=== PATIENT | female | born 1940 | race Caucasian/White ===

== ENCOUNTER 2018-10-14 14:00 | Inpatient (IN) | payer MEDICARE, OTHER ==
[~2018-10-14] VITALS: Ht 160 cm; Wt 82.8 kg
[2018-10-14 15:23] LABS: BASO # 0.1 10^3/uL (0.0-0.2); BASO % 0.7 % (0.0-1.0); EOS % 0.3 % (0.0-3.0); HEMOGLOBIN 13.8 g/dl (12.0-15.5); LYMPH # 0.7 10^3/uL (1.5-4.5); LYMPH % 10.7 % (24.0-44.0); MEAN CORPUSCULAR HEMOGLOBIN 31.6 pg (27.0-33.0); MEAN CORPUSCULAR HGB CONC 32.1 g/dl (32.0-36.5); MEAN CORPUSCULAR VOLUME 98.4 fl (80.0-96.0); MONO # 0.5 10^3/uL (0.0-0.8); MONO % 7.1 % (0.0-5.0); NEUTROPHILS # 5.6 10^3/uL (1.8-7.7); NEUTROPHILS % 80.8 % (36.0-66.0); PLATELET COUNT, AUTOMATED 190 10^3/uL (150-450); RED BLOOD COUNT 4.37 10^6/uL (4.00-5.40); WHITE BLOOD COUNT 6.9 10^3/uL (4.0-10.0)
[2018-10-14] MEDS ORDERED: METOPROLOL 5 MG/5 ML VIAL IV STA (15:28)
[2018-10-14] MEDS ORDERED: METOPROLOL SUCC (TopROL XL) 50MG **XL** TAB PO ONE (15:30)
--- NOTE | 2018-10-14 15:38 | REP ---
Clinical: Slurred speech Comparison: None . Findings: Age-related atrophy with periventricular leukomalacia and microvascular ischemic changes are appreciated. Subtle small lacunar infarctions in the bilateral basal ganglia likely chronic. The ventricles and sulci are symmetric. Crews-white differentiation is maintained. There is no evidence for acute intracranial hemorrhage, mass/mass effect, pathology or infarction. No extra-axial fluid collection. Calvarium is intact. Paranasal sinuses and mastoid air cells are clear. Impression: Atrophy with periventricular leukomalacia and microvascular ischemic changes. Small basal ganglia lacunar infarcts. No acute intracranial hemorrhage or mass effect. Electronically Signed by Shekhar Orona MD 10/14/2018 03:30 P
--- NOTE | 2018-10-14 15:43 | REP ---
Clinical: Cerebrovascular accident. Comparison: None. Findings: Moderate bibasilar opacities consistent with consolidations and effusions. Differential diagnosis includes pulmonary edema. Visualized cardiac silhouette suggests cardiomegaly. No pneumothorax. Skeletal structures demonstrate osteopenia and degenerative changes. Impression: Moderate bilateral opacities consistent with effusions and consolidations. Findings likely represent pulmonary edema. Electronically Signed by Shekhar Orona MD 10/14/2018 03:35 P
[2018-10-14] MEDS ORDERED: FUROSEMIDE 40 MG/4 ML VIAL (J1940) IV ONE (15:45)
[2018-10-14 15:50] LABS: CALCIUM LEVEL 9.3 MG/DL (8.8-10.2); CREATININE FOR GFR 1.17 MG/DL (0.55-1.30); GLOMERULAR FILTRATION RATE 47.4 (>32); MB/CK RELATIVE INDEX 4.3 (< OR =4); POTASSIUM SERUM 4.9 MEQ/L (3.5-5.1); TROPONIN I 0.06 NG/ML (< 0.10)
[2018-10-14 15:57] LABS: INR 1.08; PROTHROMBIN TIME 14.1 SECONDS (12.1-14.4)
[2018-10-14 15:58] LABS: PARTIAL THROMBOPLASTIN TIME 26.3 SECONDS (25.4-37.6)
[2018-10-14] MEDS: METOPROLOL 5 MG/5 ML VIAL IV SCH ×3 (16:08→16:17)
[2018-10-14 16:40] LABS: INFLUENZA A AMPLIFICATION NEGATIVE (NEGATIVE); INFLUENZA B AMPLIFICATION NEGATIVE (NEGATIVE)
[2018-10-14 16:55] LABS: FREE T4 1.2 NG/DL (0.76-1.46)
[2018-10-14] MEDS ORDERED: diltiaZEM 125 MG in NS 100 ML IV SCH (19:00)
[2018-10-14 20:00] VITALS: BP 122/80
[2018-10-14] MEDS: ENOXAPARIN 40 MG/0.4 ML SYRINGE (J1650) SC SCH (20:06)
[2018-10-14 20:30] VITALS: BP 119/76
[2018-10-14 20:59] LABS: FREE T4 1.23 NG/DL (0.76-1.46); THYROID STIMULATING HORMONE 8.18 uIU/ML (0.358-3.740); TROPONIN I 0.06 NG/ML (< 0.10)
[2018-10-14 21:00] VITALS: BP 112/72
[2018-10-14 22:00] VITALS: BP 106/74
[2018-10-14 23:00] VITALS: BP 110/65
[2018-10-15] VITALS (8 sets, daily range): BP systolic 88–139; BP diastolic 0–77
[2018-10-15] MEDS ORDERED: diltiaZEM 125 MG in NS 100 ML IV SCH (01:00)
[2018-10-15 05:49] LABS: BASO # 0.1 10^3/uL (0.0-0.2); BASO % 0.9 % (0.0-1.0); EOS % 0.2 % (0.0-3.0); HEMATOCRIT 37.1 % (36.0-47.0); HEMOGLOBIN 12.1 g/dl (12.0-15.5); LYMPH # 0.7 10^3/uL (1.5-4.5); LYMPH % 11.8 % (24.0-44.0); MEAN CORPUSCULAR HEMOGLOBIN 31.3 pg (27.0-33.0); MEAN CORPUSCULAR HGB CONC 32.6 g/dl (32.0-36.5); MEAN CORPUSCULAR VOLUME 95.9 fl (80.0-96.0); MONO # 0.6 10^3/uL (0.0-0.8); MONO % 10.2 % (0.0-5.0); NEUTROPHILS # 4.5 10^3/uL (1.8-7.7); NEUTROPHILS % 76.4 % (36.0-66.0); PLATELET COUNT, AUTOMATED 147 10^3/uL (150-450); RED BLOOD COUNT 3.87 10^6/uL (4.00-5.40); WHITE BLOOD COUNT 5.9 10^3/uL (4.0-10.0)
[2018-10-15] MEDS: METOPROLOL TART 25 MG TABLET PO SCH ×3 (06:00→17:40)
[2018-10-15 06:13] LABS: CALCIUM LEVEL 8.6 MG/DL (8.8-10.2); CREATININE FOR GFR 1.28 MG/DL (0.55-1.30); GLOMERULAR FILTRATION RATE 42.7 (>32); POTASSIUM SERUM 4.4 MEQ/L (3.5-5.1)
--- NOTE | 2018-10-15 07:50 | REP ---
Clinical: Shortness of breath. Comparison: 10/14/2018. Findings: Cardiomegaly with moderate pleural effusions and bibasilar opacities similar to prior examination. No pneumothorax. Skeletal structures demonstrate stable osteopenia and degenerative changes. Impression: Pulmonary edema. Findings essentially unchanged compared to prior examination. Electronically Signed by Shekhar Orona MD 10/15/2018 07:42 A
[2018-10-15 07:58] LABS: TOTAL T3 71.4 NG/DL (60.0-181.0)
[2018-10-15] MEDS ORDERED: FUROSEMIDE 40 MG/4 ML VIAL (J1940) IV SCH ×2 (09:00)
--- NOTE | 2018-10-15 09:22 | ECGEPIP ---
Stationary ECG Study [facility] Test Date: 2018-10-15 Pat Name: VLADISLAV ROGER Department: Room: [place] [address] Gender: F [employer]p [employer]: ANI : 1940 Requested By: Tyree Mora Order Number: [id number] Reading MD: Cindy Goddard Measurements Intervals [place] Rate: 98 P: HI: 0 QRS: 17 QRSD: 88 T: 190 QT: 376 QTc: 481 Interpretive Statements ATRIAL FLUTTER/TACHYCARDIA MODERATE T-WAVE ABNORMALITY, CONSIDER INFERO LATERAL ISCHEMIA LOW VOLTAGE LIMB LEADS NO PRIOR Electronically Signed On 10-15-2018 9:21:56 EST by Cindy Goddard
[2018-10-15] MEDS: ENOXAPARIN 40 MG/0.4 ML SYRINGE (J1650) SC SCH ×2 (09:55→21:50)
[2018-10-15] MEDS: FUROSEMIDE 40 MG/4 ML VIAL (J1940) IV SCH ×2 (12:00→17:41)
--- NOTE | 2018-10-15 12:48 | CR ---
DATE OF CONSULTATION: 10/14/2018 INDICATION: Atrial fibrillation, congestive heart failure. HISTORY OF PRESENT ILLNESS: Ms. Haro is an 78-year-old female who is previously unknown to me. According to her own description, she has not seen a physician in approximately 40 years. She was in her usual state of health until approximately 2 weeks ago when she started having symptoms suggestive of respiratory infection with some itching in her throat and coughing but it gradually got worse and worse and was associated with a with paroxysmal nocturnal dyspnea and worsening exertional dyspnea. Eventually, she was brought to emergency room earlier today. She denies, during this time, any form of chest discomfort. She believes that it was 3 or 4 weeks ago she was doing perfectly fine. On the initial emergency room evaluation, she was found to be in atrial flutter with 2:1 conduction and ventricular rate 150 beats per minute. She was given IV metoprolol that led to some slowing in her heart rate. She then got 50 of oral Toprol XL and at the time of my evaluation her ventricular rate was 120 beats per minute. It is atrial flutter with variable AV conduction. She feels better, reasonably comfortable lying on the stretcher. She has no awareness of the palpitations. She denies any chest discomfort. PAST MEDICAL HISTORY: Essentially negative but she has not seen a physician in many years. OUTPATIENT MEDICATIONS: No outpatient medications. ALLERGIES: PENICILLIN. SOCIAL HISTORY: The patient is a . She lives alone. She has one son who lives in [place]. She never smoked. She does not drink alcohol. She was essentially a homemaker. FAMILY HISTORY: Positive for cardiac problems. Her father apparently of heart attack in his 60s. REVIEW OF SYSTEMS: She denies any jenny fever or chills. She denies any nausea, vomiting, diarrhea. She denies any history of bleeding problems, specifically has not noted any blood in her stools. There has never been any epistaxis. She did not notice peripheral edema. The rest of the review of systems is negative. PHYSICAL EXAMINATION: Mrs. Haro is an elderly female. She appears to be in no distress and in a good mood. She is joking with her family. She is somewhat hard of hearing so the communication is slightly limited. Last set of vital signs: Blood pressure 113/63, heart rate is 126. She is afebrile. Saturation 96% on 2 liters of oxygen by nasal cannula. She is alert and oriented and appropriate. Her jugular venous pressure is about 3-4 cm above clavicle. Lungs reveal fair air movement. I do appreciate occasional fine crackles. There are diminished breath sounds over both bases. Heart exam reveals irregular tachycardia. I do not appreciate a distinct gallop, rub or murmur. Abdomen is soft without tenderness or rebound tenderness. Extremities have 1 to 2+ edema up to her knees. Neurologically, she is intact. Speech is intact. She has symmetrical strength in both extremities. LABORATORY DATA: CBC is normal with hemoglobin 13.8, hematocrit 43.8, platelet count 190,000. Basic metabolic panel: Sodium 142, potassium 4.9, BUN 22, creatinine 1.2 for GFR 48, glucose 133. Her troponin I is 0.06 and overall pro BNP is 12,000, Free T4 was 1.2. TSH was not drawn. INR was 1.1 and PTT 26. ECG reveals atrial flutter with 2:1 conduction and poor R-wave progression, somewhat low voltage in precordial leads. The chest x-ray is consistent with congestive heart failure. There are bilateral pleural effusions and some vascular redistribution. The heart is enlarged as well. ASSESSMENT/PLAN: Mrs. Haro is an 78-year-old female who presents with congestive heart failure and was found to be in atrial flutter with rapid ventricular response. She reports feeling sick approximately 2 weeks, but the onset of atrial flutter is uncertain. As far as AF management is concerned, I will give her Lovenox at 40 mg twice a day, accounting for her age and underlying renal insufficiency. She was given metoprolol IV and heart rate has dropped from 150 to about 120s. She was started on IV Cardizem by the hospitalist service. I will leave it unchanged for the time being even though my preference would be to continue with beta blockers orally and add digoxin if necessary. Certainly the dose of medication will have to be adjusted depending on her response. Echocardiogram was ordered for tomorrow. As far as management of congestive heart failure is concerned, she certainly has both left-sided and right-sided heart failure. I do suspect it is secondary to her atrial flutter. She received Lasix in the hospital. I am going to leave the dosing at 40 mg once a day, even though she will likely need additional doses depending on diuretic response. Will have to adjust diuretic dosing accordingly. I explained to the patient and family that she will stay in the hospital for at least several days. Dr. Garrido will be covering starting tomorrow. JOSE
--- NOTE | 2018-10-15 13:36 | HPE ---
DATE OF ADMISSION: 10/14/2018 78 you female with no past medical history. Has not seen a doctor for almost 30 years. She presented to the emergency room with increasing shortness of breath, which has been going on for the past couple of days. Approximately 48 hours ago, the patient was requiring more pillows to sleep at night and she does have occasional palpitations with retrosternal chest pain, nonradiating. So she came to the emergency room for evaluation. In the emergency room, she was found to have new onset atrial fibrillation with rapid ventricular response. She was given Lopressor 5 mg IV times three to no avail and the patient was started on Cardizem drip. The patient was also given 40 mg of Lasix and she feels better at this time. The patient currently is in atrial fibrillation with a rate between 120 and 138 beats per minute. However, the Cardizem has not been started just yet. Troponin was negative. She has never had similar symptoms in the past. She will be admitted for further management. PAST MEDICAL HISTORY: No past medical history. PAST SURGICAL HISTORY: None. DRUG ALLERGIES: PENICILLIN. FAMILY HISTORY: Negative for early coronary artery disease or heart failure. SOCIAL HISTORY: The patient denies tobacco, alcohol or illicit drugs. MEDICATIONS: She takes mo medications at home. REVIEW OF SYSTEMS: Negative for all ten major systems except what is mentioned in the history of present illness. VITAL SIGNS: Blood pressure 120/80, heart rate is 126 and irregular, respiratory rate is 16, temperature is 99.5, oxygen saturation is 96% on room air. Head is atraumatic, normocephalic. Neck is supple with no jugular venous distention (JVD). Lungs have crackles bilaterally. S1, S2 audible. No murmurs appreciated. Abdomen is soft. Positive bowel sounds. No pedal edema. Neurologic examination, the patient is awake, alert and oriented times three. LABORATORIES: WBC 6.9, hemoglobin 13.8, hematocrit 43, platelets are 190,000. Sodium 142, potassium 4.9, chloride 110, CO2 of 21, anion gap 11, BUN 22, creatinine 1.17, lactic acid is 2.7, calcium 9.3, troponin 0.06, BTNP 99748. 12-lead EKG shows atrial fibrillation, rate 120 beats per minute, no acute ST abnormalities. Chest x-ray reveals cephalization with bilateral small pleural effusions. IMPRESSION: 1. Acute congestive heart failure (CHF). 2. New onset atrial fibrillation with rapid ventricular response. PLAN: The patient is to be admitted to the progressive care unit (PCU). We will start the patient on Cardizem drip at 5 mg an hour. We will get a second troponin to rule out acute coronary syndrome, TSH as well. Dr. Mora has been consulted and will see the patient. Continue the patient on Lasix 40 mg IV daily and get an echocardiogram in the morning. We will continue following her care in the progressive care unit (PCU).
--- NOTE | 2018-10-15 13:54 | IPNPDOC ---
Text Note Date of Service The patient was seen on 10/15/18. NOTE Subjective: Patient is an 78-year-old female with no significant PMHx, she has not seen a physician for almost 30 years. . She initially presented to the ER with complaints of shortness of breath going on for a few weeks and worsened over the last couple of days. In the emergency room, patient was found to have atrial fibrillation and physical with evidence of fluid overload. Patient was admitted to the hospitalist service for atrial fibrillation and treatment of her fluid overload. Cardiology was called on consultation. Patient was seen and examined at the bedside. This morning patient reports that her breathing is doing better. Denies any cough, chest pain or palpitations. . They deny nausea, vomiting, abdominal pain, constipation, diarrhea or discomfort with urination. Objective: Vitals (See below) General: Lying in bed, no acute distress, comfortable, AAOx3 HEENT: NC, AT CVS: +S1S2 Lungs: Fair air entry b/l, auscultation does reveal inspiratory crackles bilaterally. No evidence of wheezing or rhonchi Abdomen: Soft, ND, NT Extremities: No evidence of LE ayah, - Calf tenderness Assessment and plan: Shortness of breath - likely 2/2 uncontrolled A. fib with RVR - Patient has not seen a physician in 30 years; presented with shortness of breath - Overnight, patient was put on a diltiazem drip has since been rate controlled - Thyroid function noted - ECHO pending - c/w Telemetry monitoring - s/p Cardizem drip - c/w Metoprolol 25 q6h - c/w Lovenox 40 BID - Cardiology on consultation; appreciate their input Fluid overload - likely 2/2 CHF - Physical still reveal some signs of fluid overload - BNP elevated - CXR 10/15: Pulmonary edema. Findings essentially unchanged compared to prior examination. - Will add strict ins/outs, daily weights - c/w Furosemide; will increase to q6h with net negative protocol Possible Hx of prior stroke - She was reported to have slurred speech prior to arrival - Currently does not experience any slurred speech - No focal neurologic deficit noted - CT head 10/14: Atrophy with periventricular leukomalacia and microvascular ischemic changes. Small basal ganglia lacunar infarcts. No acute intracranial hemorrhage or mass effect. - Will get MRI / MRA of brain and MRA carotid - ECHO pending - c/w Telemetry monitoring - Will start ASA and Atorvastatin s/p Lactic acidosis DVT prophylaxis - c/w Lovenox VS,Fishbone, I+O VS, Fishbone, I+O Laboratory Tests 10/14/18 15:12 Red Blood Count 4.37, Mean Corpuscular Volume 98.4 H, Mean Corpuscular Hemoglobin 31.6, Mean Corpuscular Hemoglobin Concent 32.1, Red Cell Distribution Width 15.8 H, Neutrophils (%) (Auto) 80.8 H, Lymphocytes (%) (Auto) 10.7 L, Monocytes (%) (Auto) 7.1 H, Eosinophils (%) (Auto) 0.3, Basophils (%) (Auto) 0.7, Neutrophils # (Auto) 5.6, Lymphocytes # (Auto) 0.7 L, Monocytes # (Auto) 0.5, Eosinophils # (Auto) 0.0, Basophils # (Auto) 0.1, Calcium Level 9.3, Total Creatine Kinase 114 10/15/18 05:30 Red Blood Count 3.87 L, Mean Corpuscular Volume 95.9, Mean Corpuscular Hemoglobin 31.3, Mean Corpuscular Hemoglobin Concent 32.6, Red Cell Distribution Width 15.9 H, Neutrophils (%) (Auto) 76.4 H, Lymphocytes (%) (Auto) 11.8 L, Monocytes (%) (Auto) 10.2 H, Eosinophils (%) (Auto) 0.2, Basophils (%) (Auto) 0.9, Neutrophils # (Auto) 4.5, Lymphocytes # (Auto) 0.7 L, Monocytes # (Auto) 0.6, Eosinophils # (Auto) 0.0, Basophils # (Auto) 0.1, Calcium Level 8.6 L Vital Signs Date Time Temp Pulse Resp B/P (MAP) Pulse Ox O2 Delivery O2 Flow Rate FiO2 10/15/18 12:57 114 113/64 10/15/18 11:49 97.2 18 93 Room Air I&O- Last 24 Hours up to 6 AM 10/15/18 06:00 Output Total 400 ml Balance -400 ml WINNIE AREVALO MD Oct 15, 2018 13:54
[2018-10-15] MEDS ORDERED: ATORVASTATIN 20 MG TAB PO ONE (14:30)
[2018-10-15] MEDS ORDERED: ASPIRIN 81 MG ENTERIC TAB PO ONE (14:30)
--- NOTE | 2018-10-15 14:52 | ECGEPIP ---
Stationary ECG Study [facility] - ED Test Date: 2018-10-14 Pat Name: VLADISLAV ROGER Department: Room: [place] [address] Gender: F Housekeeper/Custodian/Laundry Worker: TC : 1940 Requested By: Miguel Lozano Order Number: [id number] Reading MD: Brooke Dominguez Measurements Intervals [place] Rate: 148 P: ND: 0 QRS: -5 QRSD: 85 T: 151 QT: 285 QTc: 448 Interpretive Statements ATRIAL FLUTTER/TACHYCARDIA WITH RAPID VENTRICULAR RESPONSE ST DEVIATION AND MODERATE T-WAVE ABNORMALITY, CONSIDER LATERAL ISCHEMIA NO PRIOR FOR COMPARISON Electronically Signed On 10-15-2018 14:51:55 EST by Brooke Dominguez
[2018-10-15] MEDS ORDERED: PROHANCE 279.3MG/ML 15ML VIAL (A9576) As Ordered ONE (18:45)
--- NOTE | 2018-10-15 19:49 | REPVR ---
EXAM: MR Head Without Contrast EXAM DATE/TIME: 10/15/2018 1:56 PM CLINICAL HISTORY: 78 years old, female; Signs and symptoms; Speech disturbance; Slurred speech; Additional info: Slurred spech TECHNIQUE: MR of the head without contrast. COMPARISON: MRA BRAIN W/O CONTRAST 10/15/2018 6:52 PM FINDINGS: Images are limited due to patient motion. No abnormal restriction of diffusion to indicate acute CVA. Midline structures and cerebellar tonsillar position appear normal. Ventricles, cisterns and sulci are symmetrically prominent. No intracranial mass, midline shift or abnormal extra-axial fluid. No acute intracranial hemorrhage or hemosiderin deposition. Moderate pattern of increased T2 and flair signal in supratentorial white matter. Optic chiasm and pituitary infundibulum appear normal. Normal vascular flow voids in major intracranial arteries and dural venous sinuses. Paranasal sinuses are clear. Mastoid air cells are normally aerated. Optic globes and orbits are unremarkable. IMPRESSION: Slightly limited exam secondary to patient motion on multiple sequences. No MR evidence of an acute infarct and no evidence of hemorrhage or mass effect. Atrophy and moderate chronic microangiopathic supratentorial white matter changes Electronically signed by: Chito Bella On 10/15/2018 19:48:39 PM
[2018-10-15] MEDS: DIGOXIN INJ 0.5 MG/2 ML AMP (J1160) IV SCH (21:49)
--- NOTE | 2018-10-15 22:01 | IPN ---
DATE: 10/15/2018 Mrs. Maegan Haro was seen this evening, she was supine in bed, in no acute distress and three members of her family were at bedside. She was seen yesterday by Dr. Mora. She was admitted with atrial fibrillation with a rapid ventricular rate and congestive heart failure. She has been on aspirin, furosemide/Lasix, metoprolol tartrate, and Lovenox. Her heart rate continues to be fast. She already received one dose of metoprolol tartrate earlier today, but on hold this evening because of low blood pressure. PHYSICAL EXAMINATION: The patient is alert and oriented, in no acute distress. Very pleasant. Her last vital signs revealed a blood pressure of 117/58 with a pulse of 103, respirations 18, and her maximum temperature is 97.0 degrees Fahrenheit with an oxygen saturation of 93% on room air. When I was at the nursing station, he pulse was about 120 beats per minute. Head: Atraumatic. Neck is supple. I cannot appreciate any jugular venous distention (JVD). The lungs reveal minimal crackles at the bases. The heart examination revealed irregular heart sounds without gallops. Point of maximal impulse (PMI) is displaced inferiorly and laterally. There is no rub. There is a systolic murmur grade 1 to 2/6 at the lower sternal border and at the apex some radiation to the axilla. Abdomen is unremarkable. Extremities reveal only trace bilateral lower leg edema. Neurological examination: Negative for focal deficit. LABS: EKG on admission revealed atrial fibrillation/flutter with a ventricular rate of 148 beats per minute and nonspecific ST-T abnormalities. CBC revealed a WBC of 5.9, hemoglobin 12.1, hematocrit 37.1 and platelet 147,000. BMP done today reveals a sodium of 143, potassium 4.4, chloride 110, CO2 25, BUN 25, creatinine 1.28, GFR 42.7. Fasting glucose 77 and calcium 8.6. Serum TSH on admission was 8.18. Serum troponin has been negative. Serum pro BNP on admission was 12,442. Echocardiogram was done today. Left ventricular ejection fraction (LVEF) is estimated at 25 to 20%. IMPRESSION: 1. Atrial fibrillation with uncontrolled ventricular rate, newly diagnosed. 2. Congestive heart failure secondary to left ventricular systolic dysfunction and underlying uncontrolled atrial fibrillation. 3. Hyperlipidemia. 4. Chronic kidney disease. Mrs. Maegan Haro's atrial fibrillation rate is still not quite under control. She will continue the small dose of the beta marielena, it will be reduced to 12.5 mg by mouth twice a day starting tomorrow and I am going to load her with digoxin. It is unlikely to drop her blood pressure. Her diagnostic was discussed with family members present in the room. They understand that she will need new medications for her underlying cardiac condition including anticoagulation therapy. She is currently on Lovenox and it can be discontinued and I recommend to start her on Eliquis at 5 mg by mouth twice a day. If her blood pressure remains stable and if there is no contraindication, she will be started on a small dose of an angiotensin-converting enzyme (ADÁN) inhibitor or angiotensin II receptor blockers (ARB), particularly ramipril or losartan, they are less likely to drop her blood pressure. When she is started on the Eliquis, I will stop the aspirin. It was a pleasure to participate in the care of Mrs. Maegan Haro for her underlying cardiac condition. I will continue to monitor her along with you while in the hospital and upon discharge. Please do not hesitate to call if any questions. SHYD
--- NOTE | 2018-10-15 22:24 | ECHO ---
DATE OF PROCEDURE: 10/14/2018 REFERRING PHYSICIAN: Geno Florence MD PATIENT LOCATION: Room 3222 REASON FOR ECHOCARDIOGRAM: Heart failure, atrial fibrillation. 2D MEASUREMENTS: IVS: 0.64 cm LV: 5.4 cm LVPW: 0.78 cm LA: 3.6 cm Aorta: 2.9 cm IVC: 1.8 cm DOPPLER MEASUREMENTS: Peak velocity across the aortic valve: 0.97 m/s Peak velocity across the LVOT: 0.54 m/s Mitral E: 1.1 2D COMMENTS: 1. Normal left ventricular size and wall thickness but with a severely depressed global left ventricular systolic function. The estimated global left ventricular systolic ejection fraction is 20 to 25%. There was severe global hypokinesis. 2. Subjectively, the left atrium is mildly enlarged. The right atrium also appeared to be mildly enlarged. Normal right ventricle. 3. The atrial septum appeared to be normal without evidence of defect or shunt. 4. Normal aortic root. 5. Trace pericardial effusion noted. A left pleural effusion also was noted. 6. Mildly calcified aortic valve with normal leaflet excursion. Mildly calcified mitral annulus with normal anterior mitral valve leaflet motion. Normal tricuspid valve and pulmonic valve. The proximal pulmonary artery branches were no well visualized. 7. The inferior vena cava is normal in size, central venous pressure might be normal. DOPPLER: It detects trace aortic regurgitation, moderate mitral regurgitation, moderate tricuspid regurgitation, and trace pulmonic regurgitation. Pulmonary artery systolic pressure was mildly elevated. Assessment of the left ventricular diastolic function was limited in view of the underlying atrial fibrillation. IMPRESSION: 1. Severe global left ventricular systolic dysfunction with global hypokinesis. 2. Aortic valve sclerosis with trace aortic regurgitation, but no aortic stenosis. 3. Mitral annulus calcification with moderate mitral regurgitation and subjectively, mildly enlarged left atrium. 4. Moderate tricuspid regurgitation with dilated right atrium. Pulmonary pressure appeared to be only mildly elevated. 5. Left pleural effusion was noted. Trace pericardial effusion was noted, no evidence of cardiac tamponade. [facility]
--- NOTE | 2018-10-15 23:49 | REPVR ---
EXAM: MR Angiogram Head Without Contrast, Arteries EXAM DATE/TIME: 10/15/2018 7:31 PM CLINICAL HISTORY: 78 years old, female; Signs and symptoms; Speech disturbance; Slurred speech; Additional info: Slurred spech TECHNIQUE: MR angiogram head without contrast. Exam focused on the arteries. COMPARISON: CT Head without contrast 10/14/2018 3:10 PM FINDINGS: Anterior circulation: Normal flow signal and luminal caliber in the petrous, cavernous and supraclinoid internal carotid arteries. Normal appearance of the anterior cerebral artery branches and middle cerebral artery branches through the MCA trifurcations. No occlusion, high-grade focal stenosis or dissection. No aneurysm. Posterior circulation: Normal distal vertebral arteries, with patent normal caliber basilar artery, and normal superior cerebellar and posterior cerebral arteries. No occlusion, high-grade stenosis or aneurysm. Left vertebral artery is dominant. Right vertebral artery is diminutive with questionable decreased flow signal at the skull base level but normal distalmost vertebral artery flow signal and normal basilar artery IMPRESSION: Essentially unremarkable MR angiogram of the [place] and intracranial vertebrobasilar system. No intracranial stenosis. Distal right vertebral artery narrowing which will be discussed in the MR angiogram neck report Electronically signed by: Chito Bella On 10/15/2018 23:48:46 PM
--- NOTE | 2018-10-15 23:51 | REPVR ---
EXAM: MR Angiography Neck Without Contrast EXAM DATE/TIME: 10/15/2018 7:31 PM CLINICAL HISTORY: 78 years old, female; Signs and symptoms; Speech disturbance; Additional info: Slurred spech TECHNIQUE: Magnetic resonance angiography images of the neck without intravenous contrast. COMPARISON: MRA BRAIN W/O CONTRAST 10/15/2018 6:52 PM FINDINGS: Bilateral common carotid arteries, carotid bulbs, internal carotids and proximal external carotid branches show normal symmetric luminal caliber and flow signal. No high-grade stenosis. No occlusion or dissection. Both vertebral arteries are patent to the level of the skull base. No dissection, or occlusion or focal stenosis. There is decreased luminal caliber and flow signal of the right vertebral artery relative to the left, from the C1 level through the occipital condyle level, with normal caliber and flow signal in the distal most 2 cm and with a patent vertebrobasilar limits No abnormality of the great vessel origins from the aortic arch. Bilateral pleural effusions appear to be present IMPRESSION: Essentially unremarkable MR angiogram of the neck. Focal decreased caliber and decreased flow signal suspected involving the right vertebral artery from the C1 level through the occipital condyle level. This could be artifactual, and there is reconstitution of normal flow signal and normal caliber distally and at the vertebrobasilar confluence. Consideration could be given for CT angiogram of the neck if clinically warranted Electronically signed by: Chito Bella On 10/15/2018 23:50:43 PM
[2018-10-16] VITALS (15 sets, daily range): BP systolic 104–129; BP diastolic 53–91
[2018-10-16] MEDS: FUROSEMIDE 40 MG/4 ML VIAL (J1940) IV SCH ×4 (00:12→18:34)
[2018-10-16] MEDS: DIGOXIN INJ 0.5 MG/2 ML AMP (J1160) IV SCH ×3 (02:41→14:26)
[2018-10-16 05:55] LABS: HEMATOCRIT 43.1 % (36.0-47.0); MEAN CORPUSCULAR HEMOGLOBIN 31.3 pg (27.0-33.0); MEAN CORPUSCULAR HGB CONC 32.9 g/dl (32.0-36.5); MEAN CORPUSCULAR VOLUME 94.9 fl (80.0-96.0); PLATELET COUNT, AUTOMATED 166 10^3/uL (150-450); RED BLOOD COUNT 4.54 10^6/uL (4.00-5.40); WHITE BLOOD COUNT 8.1 10^3/uL (4.0-10.0)
[2018-10-16 06:01] LABS: HEMOGLOBIN 14.2 g/dl (12.0-15.5)
[2018-10-16 06:13] LABS: CALCIUM LEVEL 8.8 MG/DL (8.8-10.2); CREATININE FOR GFR 1.18 MG/DL (0.55-1.30); GLOMERULAR FILTRATION RATE 46.9 (>32); POTASSIUM SERUM 3.6 MEQ/L (3.5-5.1)
[2018-10-16] MEDS: METOPROLOL TART 12.5 MG PER 1/2 TAB PO SCH ×2 (08:09→21:00)
[2018-10-16] MEDS ORDERED: ATORVASTATIN 20 MG TAB PO SCH (09:00)
[2018-10-16] MEDS ORDERED: ASPIRIN 81 MG ENTERIC TAB PO SCH (09:00)
--- NOTE | 2018-10-16 13:22 | IPNPDOC ---
Subjective Date Seen The patient was seen on 10/16/18. Subjective Chief Complaint/HPI Patient seen and examined at the bedside. The patient's heart rate continues to fluctuate into the 130s in atrial fibrillation. However, she remains asymptomatic. The patient was prescribed digoxin by cardiology. Her blood pressure is stable at this time. Objective Physical Examination General Exam: Positive: Alert, Cooperative ENT Exam: Positive: Atraumatic, Mucous membr. moist/pink Chest Exam: Positive: Diminished Heart Exam: Positive: Tachycardic, Normal S1, Normal S2 Telemetry: Positive: Atrial fibrillation Abdomen Exam: Positive: Soft; Negative: Tenderness Extremity Exam: Negative: Tenderness, Swelling Assessment /Plan Plan/VTE VTE Prophylaxis Ordered?: Yes Plan Shortness of breath - likely 2/2 uncontrolled A. fib with RVR ECHO notable for severe global left ventricular systolic dysfunction with an EF of 20-25%. The patient has been started on IV Lasix, and metoprolol twice a day, as well as digoxin by cardiology She remains in atrial fibrillation with a heart rate that has been fluctuating from the low 100s to 120s The patient's blood pressure has remained stable Continue Telemetry monitoring We will avoid calcium channel blockers in view of the patient's significantly reduced ejection fraction The patient has been started on Eliquis for AC--risks, benefits, and alternative therapies extensively discussed with the patient and her niece at the bedside this morning. Cardiology on board; appreciate their input Fluid overload - likely 2/2 CHF Cont IV Lasix We will start the patient on an ADÁN inhibitor/ARB once her volume status is better optimized, and her blood pressure can tolerate it Strict ins/outs, daily weights We will continue to monitor the patient's volume status ?Slurring of Speech on presentation No focal neurologic deficit noted CT head 10/14: Atrophy with periventricular leukomalacia and microvascular ischemic changes. Small - MRI / MRA of brain and MRA carotid with no acute findings ECHO as noted above c/w Telemetry monitoring CKD Stage III Serum Cr at baseline s/p Lactic acidosis DVT prophylaxis on Eliquis Disposition: Pending volume optimization with diuretic therapy, HR control, and PT clearance. VS, I&O, 24H, Fishbone Vital Signs/I&O Vital Signs Date Time Temp Pulse Resp B/P (MAP) Pulse Ox O2 Delivery O2 Flow Rate FiO2 10/16/18 12:20 98.0 85 18 129/62 (84) 93 Room Air I&O- Last 24 Hours up to 6 AM 10/16/18 06:00 Intake Total 720 ml Output Total 2150 ml Balance -1430 ml Laboratory Data 24H LABS Laboratory Tests 2 10/16/18 05:11: Nucleated Red Blood Cells % (auto) 0.0, Anion Gap 8, Glomerular Filtration Rate 46.9, Blood Urea Nitrogen 20H, Creatinine 1.18, Sodium Level 139, Potassium Level 3.6, Chloride Level 99, Carbon Dioxide Level 32, Calcium Level 8.8 CBC/BMP Laboratory Tests 10/16/18 05:11 Red Blood Count 4.54, Mean Corpuscular Volume 94.9, Mean Corpuscular Hemoglobin 31.3, Mean Corpuscular Hemoglobin Concent 32.9, Red Cell Distribution Width 15.5 H, Calcium Level 8.8 Microbiology Microbiology 10/14/18 Respiratory Virus Panel (PCR) ([facility]) - Final, Complete DEVANTE MCLAUGHLIN MD Oct 16, 2018 13:22
[2018-10-16] MEDS ORDERED: ELIQ2.5T PO (14:17)
[2018-10-16] MEDS: APIXABAN 2.5 MG TAB (ELIQUIS) PO SCH ×2 (14:26→21:16)
[2018-10-16] MEDS ORDERED: METOPROLOL 5 MG/5 ML VIAL IV STA (17:31)
[2018-10-17] VITALS (7 sets, daily range): BP systolic 92–120; BP diastolic 54–75
[2018-10-17] MEDS: FUROSEMIDE 40 MG/4 ML VIAL (J1940) IV SCH ×4 (06:00→23:48)
[2018-10-17 06:03] LABS: HEMATOCRIT 47.4 % (36.0-47.0); HEMOGLOBIN 15.6 g/dl (12.0-15.5); MEAN CORPUSCULAR HEMOGLOBIN 30.8 pg (27.0-33.0); MEAN CORPUSCULAR HGB CONC 32.9 g/dl (32.0-36.5); MEAN CORPUSCULAR VOLUME 93.5 fl (80.0-96.0); PLATELET COUNT, AUTOMATED 174 10^3/uL (150-450); RED BLOOD COUNT 5.07 10^6/uL (4.00-5.40); WHITE BLOOD COUNT 9.8 10^3/uL (4.0-10.0)
[2018-10-17 06:30] LABS: CALCIUM LEVEL 8.8 MG/DL (8.8-10.2); CREATININE FOR GFR 1.22 MG/DL (0.55-1.30); GLOMERULAR FILTRATION RATE 45.1 (>32); POTASSIUM SERUM 3.8 MEQ/L (3.5-5.1)
[2018-10-17] MEDS: APIXABAN 2.5 MG TAB (ELIQUIS) PO SCH ×2 (08:22→21:46)
[2018-10-17] MEDS: METOPROLOL TART 12.5 MG PER 1/2 TAB PO SCH ×2 (08:22→21:46)
[2018-10-17] MEDS ORDERED: SLF 3 ML SYR IV PRN (11:00)
[2018-10-17] MEDS: SLF 3 ML SYR IV SCH ×2 (14:00→21:46)
--- NOTE | 2018-10-17 14:45 | IPNPDOC ---
Subjective Date Seen The patient was seen on 10/17/18. Subjective Chief Complaint/HPI Patient seen and examined at the bedside. Her heart rate is controlled at rest, and she denies any SOB. She is to work with PT today to optimize her functional status. Objective Physical Examination General Exam: Positive: Alert, Cooperative, No Acute Distress ENT Exam: Positive: Atraumatic, Mucous membr. moist/pink Chest Exam: Positive: Diminished Heart Exam: Positive: Rate Normal, Normal S1, Normal S2 Telemetry: Positive: Atrial fibrillation Abdomen Exam: Positive: Soft; Negative: Tenderness Extremity Exam: Negative: Tenderness, Swelling Assessment /Plan Plan/VTE VTE Prophylaxis Ordered?: Yes Plan Shortness of breath - likely 2/2 uncontrolled A. fib with RVR ECHO notable for severe global left ventricular systolic dysfunction with an EF of 20-25%. The patient is on IV Lasix, and metoprolol twice a day, s/p digoxin loading by cardiology She remains in atrial fibrillation with a heart rate that has been fluctuating from the low 90s to 100s The patient's blood pressure has remained stable Continue Telemetry monitoring We will avoid calcium channel blockers in view of the patient's significantly reduced ejection fraction The patient has been started on Eliquis for AC--risks, benefits, and alternative therapies extensively discussed with the patient and her niece at the bedside this morning. Cardiology on board; appreciate their input Acute Systolic CHF 2/2 A-Fibrillation Cont IV Lasix We will start the patient on an ADÁN inhibitor/ARB once her volume status is better optimized, and her blood pressure can tolerate it Strict ins/outs, daily weights We will continue to monitor the patient's volume status ?Slurring of Speech on presentation No focal neurologic deficit noted CT head 10/14: Atrophy with periventricular leukomalacia and microvascular ischemic changes. Small - MRI / MRA of brain and MRA carotid with no acute findings ECHO as noted above c/w Telemetry monitoring CKD Stage III Serum Cr at baseline s/p Lactic acidosis DVT prophylaxis on Eliquis Disposition: Pending volume optimization with diuretic therapy, HR control, and PT clearance. VS, I&O, 24H, Fishbone Vital Signs/I&O Vital Signs Date Time Temp Pulse Resp B/P (MAP) Pulse Ox O2 Delivery O2 Flow Rate FiO2 10/17/18 11:59 98.3 91 18 92/57 (69) 93 Room Air I&O- Last 24 Hours up to 6 AM 10/17/18 06:00 Intake Total 1560 ml Output Total 2020 ml Balance -460 ml Laboratory Data 24H LABS Laboratory Tests 2 10/17/18 05:37: Nucleated Red Blood Cells % (auto) 0.0, Anion Gap 10, Glomerular Filtration Rate 45.1, Blood Urea Nitrogen 27H, Creatinine 1.22, Sodium Level 135L, Potassium Level 3.8, Chloride Level 93L, Carbon Dioxide Level 32, Calcium Level 8.8 CBC/BMP Laboratory Tests 10/17/18 05:37 Red Blood Count 5.07, Mean Corpuscular Volume 93.5, Mean Corpuscular Hemoglobin 30.8, Mean Corpuscular Hemoglobin Concent 32.9, Red Cell Distribution Width 15.1 H, Calcium Level 8.8 Microbiology Microbiology 10/14/18 Respiratory Virus Panel (PCR) ([facility]) - Final, Complete DEVANTE MCLAUGHLIN MD Oct 17, 2018 14:45
[2018-10-18] VITALS: BP 98/58
[2018-10-18 04:00] VITALS: BP 120/58
[2018-10-18] MEDS: SLF 3 ML SYR IV SCH ×3 (05:03→20:57)
[2018-10-18 05:25] LABS: HEMATOCRIT 45.7 % (36.0-47.0); HEMOGLOBIN 15.2 g/dl (12.0-15.5); MEAN CORPUSCULAR HEMOGLOBIN 31.1 pg (27.0-33.0); MEAN CORPUSCULAR HGB CONC 33.3 g/dl (32.0-36.5); MEAN CORPUSCULAR VOLUME 93.5 fl (80.0-96.0); PLATELET COUNT, AUTOMATED 170 10^3/uL (150-450); RED BLOOD COUNT 4.89 10^6/uL (4.00-5.40); WHITE BLOOD COUNT 8.6 10^3/uL (4.0-10.0)
[2018-10-18 05:45] LABS: CALCIUM LEVEL 8.6 MG/DL (8.8-10.2); CREATININE FOR GFR 0.98 MG/DL (0.55-1.30); GLOMERULAR FILTRATION RATE 58.1 (>32); POTASSIUM SERUM 3.6 MEQ/L (3.5-5.1)
[2018-10-18 08:00] VITALS: BP 114/60
[2018-10-18] MEDS: METOPROLOL TART 12.5 MG PER 1/2 TAB PO SCH ×2 (09:23→20:56)
[2018-10-18] MEDS: APIXABAN 2.5 MG TAB (ELIQUIS) PO SCH ×2 (09:24→20:57)
[2018-10-18] MEDS: RAMIPRIL 1.25 MG CAP PO SCH (09:24)
[2018-10-18 12:00] VITALS: BP 107/59
[2018-10-18] MEDS: FUROSEMIDE 40 MG/4 ML VIAL (J1940) IV SCH (12:00)
--- NOTE | 2018-10-18 12:47 | IPNPDOC ---
Subjective Date Seen The patient was seen on 10/18/18. Subjective Chief Complaint/HPI Patient seen and examined at the bedside. Her resting heart rate remains controlled, however her HR does become elevated on activity. Dr. Garrido on board. Patient denies any c/o chest pain, palpitations, SOB. Objective Physical Examination General Exam: Positive: Alert, Cooperative, No Acute Distress ENT Exam: Positive: Atraumatic, Mucous membr. moist/pink Chest Exam: Positive: Diminished Heart Exam: Positive: Rate Normal, Normal S1, Normal S2 Telemetry: Positive: Atrial fibrillation Abdomen Exam: Positive: Soft; Negative: Tenderness Extremity Exam: Negative: Tenderness, Swelling Assessment /Plan Plan/VTE VTE Prophylaxis Ordered?: Yes Plan Shortness of breath - likely 2/2 uncontrolled A. fib with RVR ECHO notable for severe global left ventricular systolic dysfunction with an EF of 20-25%. The patient is on IV Lasix, and metoprolol twice a day, s/p digoxin loading by cardiology She remains in atrial fibrillation with a heart rate that has been fluctuating from the low 90s to 100s--however increasing into the 150+ range on activity The patient's blood pressure has remained stable Continue Telemetry monitoring We will avoid calcium channel blockers in view of the patient's significantly reduced ejection fraction The patient has been started on Eliquis for AC--risks, benefits, and alternative therapies extensively discussed with the patient and her niece at the bedside this morning. Cardiology on board; appreciate their input Acute Systolic CHF 2/2 A-Fibrillation Cont IV Lasix Cont Ramipril, Metoprolol Strict ins/outs, daily weights We will continue to monitor the patient's volume status ?Slurring of Speech on presentation No focal neurologic deficit noted CT head 10/14: Atrophy with periventricular leukomalacia and microvascular ischemic changes. Small - MRI / MRA of brain and MRA carotid with no acute findings ECHO as noted above c/w Telemetry monitoring CKD Stage III Serum Cr at baseline s/p Lactic acidosis DVT prophylaxis on Eliquis Disposition: Pending volume optimization with diuretic therapy, HR control, and PT clearance. VS, I&O, 24H, Fishbone Vital Signs/I&O Vital Signs Date Time Temp Pulse Resp B/P (MAP) Pulse Ox O2 Delivery O2 Flow Rate FiO2 10/18/18 12:00 98.5 92 18 107/59 (75) 93 Room Air I&O- Last 24 Hours up to 6 AM 10/18/18 06:00 Intake Total 480 ml Output Total 225 ml Balance 255 ml Laboratory Data 24H LABS Laboratory Tests 2 10/18/18 05:00: Nucleated Red Blood Cells % (auto) 0.0, Anion Gap 8, Glomerular Filtration Rate 58.1, Blood Urea Nitrogen 24H, Creatinine 0.98, Sodium Level 132L, Potassium Level 3.6, Chloride Level 94L, Carbon Dioxide Level 30, Calcium Level 8.6L CBC/BMP Laboratory Tests 10/18/18 05:00 Red Blood Count 4.89, Mean Corpuscular Volume 93.5, Mean Corpuscular Hemoglobin 31.1, Mean Corpuscular Hemoglobin Concent 33.3, Red Cell Distribution Width 15.0 H, Calcium Level 8.6 L Microbiology Microbiology 10/14/18 Respiratory Virus Panel (PCR) ([facility]) - Final, Complete DEVANTE MCLAUGHLIN MD Oct 18, 2018 12:47
[2018-10-18 16:00] VITALS: BP 119/58
[2018-10-18 20:00] VITALS: BP 110/55
[2018-10-19] VITALS: BP 97/62
[2018-10-19 04:00] VITALS: BP 129/78
[2018-10-19] MEDS: SLF 3 ML SYR IV SCH ×3 (05:09→21:07)
[2018-10-19 08:00] VITALS: BP 114/73
[2018-10-19] MEDS: APIXABAN 2.5 MG TAB (ELIQUIS) PO SCH ×2 (08:07→21:05)
[2018-10-19] MEDS: RAMIPRIL 1.25 MG CAP PO SCH (08:07)
[2018-10-19] MEDS: METOPROLOL TART 12.5 MG PER 1/2 TAB PO SCH ×2 (08:07→21:07)
[2018-10-19] MEDS ORDERED: METOPROLOL 5 MG/5 ML VIAL As Ordered ONE (08:17)
[2018-10-19 08:50] LABS: HEMATOCRIT 48.5 % (36.0-47.0); HEMOGLOBIN 16.3 g/dl (12.0-15.5); MEAN CORPUSCULAR HEMOGLOBIN 31.8 pg (27.0-33.0); MEAN CORPUSCULAR HGB CONC 33.6 g/dl (32.0-36.5); MEAN CORPUSCULAR VOLUME 94.7 fl (80.0-96.0); PLATELET COUNT, AUTOMATED 225 10^3/uL (150-450); RED BLOOD COUNT 5.12 10^6/uL (4.00-5.40); WHITE BLOOD COUNT 8.7 10^3/uL (4.0-10.0)
[2018-10-19 10:08] LABS: CALCIUM LEVEL 8.9 MG/DL (8.8-10.2); CREATININE FOR GFR 1.15 MG/DL (0.55-1.30); GLOMERULAR FILTRATION RATE 48.3 (>32); MAGNESIUM LEVEL 2.2 MG/DL (1.8-2.4); POTASSIUM SERUM 3.6 MEQ/L (3.5-5.1)
--- NOTE | 2018-10-19 11:41 | IPNPDOC ---
Subjective Date Seen The patient was seen on 10/19/18. Subjective Chief Complaint/HPI Patient seen and examined at the bedside. The patient's resting heart rate remains in the 80s-90s range. However, when the patient gets up and sits at the edge of the bed it has been ranging from the 150-190s range. The patient denies any symptomatic complaints of chest pain, palpitations, or shortness of breath. Objective Physical Examination General Exam: Positive: Alert, Cooperative, No Acute Distress ENT Exam: Positive: Atraumatic, Mucous membr. moist/pink Chest Exam: Positive: Diminished Heart Exam: Positive: Rate Normal, Normal S1, Normal S2 Telemetry: Positive: Atrial fibrillation Abdomen Exam: Positive: Soft; Negative: Tenderness Extremity Exam: Negative: Tenderness, Swelling Assessment /Plan Plan/VTE VTE Prophylaxis Ordered?: Yes Plan Shortness of breath - likely 2/2 uncontrolled A. fib with RVR ECHO notable for severe global left ventricular systolic dysfunction with an EF of 20-25%. The patient's resting heart rate remains in the 80s-90s range. However, when the patient gets up and sits at the edge of the bed it has been ranging from the 150-190s. The patient denies any symptomatic complaints of chest pain, palpitations, or shortness of breath. I did discuss this with the covering international marketing manager, Dr. Soto today--and we will give the patient another dose of digoxin today, and start daily dosing tomorrow. We will also consider increasing Metoprolol to 25mg BID tomorrow if the patient's blood pressure tolerates this. Cont eliquis for AC We will cont to monitor the patient Acute Systolic CHF 2/2 A-Fibrillation Cont IV Lasix--however the patient has not been receiving the doses due to low blood pressure Cont Metoprolol---Ramipril D/C'd due to low blood pressures and need to diurese Strict ins/outs, daily weights The patient is not grossly volume overloaded and remains comfortable on RA We will continue to monitor the patient's volume status ?Slurring of Speech on presentation No focal neurologic deficit noted CT head 10/14: Atrophy with periventricular leukomalacia and microvascular ischemic changes. Small - MRI / MRA of brain and MRA carotid with no acute findings ECHO as noted above c/w Telemetry monitoring CKD Stage III Serum Cr at baseline s/p Lactic acidosis DVT prophylaxis on Eliquis Disposition: Pending volume optimization with diuretic therapy, HR control, and PT clearance. VS, I&O, 24H, Fishbone Vital Signs/I&O Vital Signs Date Time Temp Pulse Resp B/P (MAP) Pulse Ox O2 Delivery O2 Flow Rate FiO2 10/19/18 08:07 142 114/73 10/19/18 08:00 97.5 14 93 Room Air I&O- Last 24 Hours up to 6 AM 10/19/18 05:59 Intake Total 480 ml Output Total 0 ml Balance 480 ml Laboratory Data 24H LABS Laboratory Tests 2 10/19/18 08:17: Nucleated Red Blood Cells % (auto) 0.0, Anion Gap 13, Glomerular Filtration Rate 48.3, Blood Urea Nitrogen 25H, Creatinine 1.15, Sodium Level 139#, Potassium Level 3.6, Chloride Level 97L, Carbon Dioxide Level 29, Calcium Level 8.9, Magnesium Level 2.2 CBC/BMP Laboratory Tests 10/19/18 08:17 Red Blood Count 5.12, Mean Corpuscular Volume 94.7, Mean Corpuscular Hemoglobin 31.8, Mean Corpuscular Hemoglobin Concent 33.6, Red Cell Distribution Width 14.8 H, Calcium Level 8.9 Microbiology Microbiology 10/14/18 Respiratory Virus Panel (PCR) ([facility]) - Final, Complete DEVANTE MCLAUGHLIN MD Oct 19, 2018 11:41
[2018-10-19 12:00] VITALS: BP 120/69
[2018-10-19] MEDS ORDERED: DIGOXIN 0.25 MG TAB PO ONE (12:00)
[2018-10-19] MEDS: FUROSEMIDE 40 MG/4 ML VIAL (J1940) IV SCH ×2 (13:14)
[2018-10-19 16:00] VITALS: BP 132/62
[2018-10-19 19:48] VITALS: BP 112/68
[2018-10-20] VITALS (7 sets, daily range): BP systolic 100–122; BP diastolic 52–70
[2018-10-20 05:12] LABS: HEMATOCRIT 45.2 % (36.0-47.0); HEMOGLOBIN 15.2 g/dl (12.0-15.5); MEAN CORPUSCULAR HEMOGLOBIN 31.4 pg (27.0-33.0); MEAN CORPUSCULAR HGB CONC 33.6 g/dl (32.0-36.5); MEAN CORPUSCULAR VOLUME 93.4 fl (80.0-96.0); PLATELET COUNT, AUTOMATED 206 10^3/uL (150-450); RED BLOOD COUNT 4.84 10^6/uL (4.00-5.40); WHITE BLOOD COUNT 7.3 10^3/uL (4.0-10.0)
[2018-10-20] MEDS: SLF 3 ML SYR IV SCH ×3 (05:20→20:56)
[2018-10-20 05:37] LABS: CALCIUM LEVEL 8.6 MG/DL (8.8-10.2); CREATININE FOR GFR 1.14 MG/DL (0.55-1.30); GLOMERULAR FILTRATION RATE 48.8 (>32); POTASSIUM SERUM 3.7 MEQ/L (3.5-5.1)
[2018-10-20] MEDS: APIXABAN 2.5 MG TAB (ELIQUIS) PO SCH ×2 (08:06→20:56)
[2018-10-20] MEDS: DIGOXIN 0.125 MG TAB PO SCH (08:07)
[2018-10-20] MEDS: METOPROLOL TART 12.5 MG PER 1/2 TAB PO SCH (08:07)
[2018-10-20] MEDS ORDERED: METOPROLOL TART 25 MG TABLET PO ONE (10:15)
[2018-10-20] MEDS: FUROSEMIDE 40 MG/4 ML VIAL (J1940) IV SCH ×2 (12:00)
--- NOTE | 2018-10-20 13:00 | IPNPDOC ---
Subjective Date Seen The patient was seen on 10/20/18. Subjective Chief Complaint/HPI Patient seen and examined at the bedside. She worked with physical therapy and did relatively well this morning. Her heart rate did elevate to the 120-130 range, but this is an improvement given that her heart rate was above 180 just yesterday with any activity. The patient has been started on digoxin daily, and her metoprolol dose was increased this morning. We will continue to monitor the patient's progress. Objective Physical Examination General Exam: Positive: Alert, Cooperative, No Acute Distress ENT Exam: Positive: Atraumatic, Mucous membr. moist/pink Chest Exam: Positive: Diminished Heart Exam: Positive: Rate Normal, Normal S1, Normal S2 Telemetry: Positive: Atrial fibrillation Abdomen Exam: Positive: Soft; Negative: Tenderness Extremity Exam: Negative: Tenderness, Swelling Assessment /Plan Plan/VTE VTE Prophylaxis Ordered?: Yes Plan Shortness of breath - likely 2/2 uncontrolled A. fib with RVR ECHO notable for severe global left ventricular systolic dysfunction with an EF of 20-25%. The patient's heart rate did elevate to the 120-130 range, but this is an improvement given that her heart rate was above 180 just yesterday with any activity. The patient has been started on digoxin daily, and her metoprolol dose was increased this morning. We will continue to monitor the patient's progress. Cardiology input appreciated Cont eliquis for AC We will cont to monitor the patient Acute Systolic CHF 2/2 A-Fibrillation Cont IV Lasix--however the patient has not been receiving the doses due to low blood pressure Cont Metoprolol---Ramipril D/C'd due to low blood pressures and need to diurese Strict ins/outs, daily weights The patient is not grossly volume overloaded and remains comfortable on RA We will continue to monitor the patient's volume status ?Slurring of Speech on presentation No focal neurologic deficit noted CT head 10/14: Atrophy with periventricular leukomalacia and microvascular ischemic changes. Small - MRI / MRA of brain and MRA carotid with no acute findings ECHO as noted above c/w Telemetry monitoring CKD Stage III Serum Cr at baseline s/p Lactic acidosis DVT prophylaxis on Eliquis Disposition: Pending volume optimization with diuretic therapy, HR control, and PT clearance. VS, I&O, 24H, Fishbone Vital Signs/I&O Vital Signs Date Time Temp Pulse Resp B/P (MAP) Pulse Ox O2 Delivery O2 Flow Rate FiO2 10/20/18 12:00 98.3 99 18 102/70 (81) 94 Room Air I&O- Last 24 Hours up to 6 AM 10/20/18 06:00 Intake Total 660 ml Output Total 0 ml Balance 660 ml Laboratory Data 24H LABS Laboratory Tests 2 10/20/18 04:55: Nucleated Red Blood Cells % (auto) 0.0, Anion Gap 6L, Glomerular Filtration Rate 48.8, Blood Urea Nitrogen 33H, Creatinine 1.14, Sodium Level 137, Potassium Level 3.7, Chloride Level 101, Carbon Dioxide Level 30, Calcium Level 8.6L CBC/BMP Laboratory Tests 10/20/18 04:55 Red Blood Count 4.84, Mean Corpuscular Volume 93.4, Mean Corpuscular Hemoglobin 31.4, Mean Corpuscular Hemoglobin Concent 33.6, Red Cell Distribution Width 14.6 H, Calcium Level 8.6 L Microbiology Microbiology 10/14/18 Respiratory Virus Panel (PCR) ([facility]) - Final, Complete DEVANTE MCLAUGHLIN MD Oct 20, 2018 13:00
[2018-10-20] MEDS: METOPROLOL TART 25 MG TABLET PO SCH (20:56)
[2018-10-21] VITALS: BP 125/57
[2018-10-21] MEDS: FUROSEMIDE 40 MG/4 ML VIAL (J1940) IV SCH ×2 (00:50→12:06)
[2018-10-21] MEDS: SLF 3 ML SYR IV SCH ×3 (05:08→22:00)
[2018-10-21 07:47] LABS: HEMATOCRIT 48.6 % (36.0-47.0); MEAN CORPUSCULAR HEMOGLOBIN 31.1 pg (27.0-33.0); MEAN CORPUSCULAR HGB CONC 32.9 g/dl (32.0-36.5); MEAN CORPUSCULAR VOLUME 94.4 fl (80.0-96.0); PLATELET COUNT, AUTOMATED 231 10^3/uL (150-450); RED BLOOD COUNT 5.15 10^6/uL (4.00-5.40); WHITE BLOOD COUNT 6.3 10^3/uL (4.0-10.0)
[2018-10-21 07:48] VITALS: BP 119/64
[2018-10-21 08:11] LABS: CALCIUM LEVEL 9.2 MG/DL (8.8-10.2); CREATININE FOR GFR 1.11 MG/DL (0.55-1.30); GLOMERULAR FILTRATION RATE 50.3 (>32); POTASSIUM SERUM 4.4 MEQ/L (3.5-5.1)
[2018-10-21] MEDS: DIGOXIN 0.125 MG TAB PO SCH (08:30)
[2018-10-21] MEDS: APIXABAN 2.5 MG TAB (ELIQUIS) PO SCH ×2 (08:30→20:46)
[2018-10-21] MEDS: METOPROLOL TART 25 MG TABLET PO SCH ×2 (08:31→20:49)
[2018-10-21 12:00] VITALS: BP 112/57
--- NOTE | 2018-10-21 13:34 | IPNPDOC ---
Text Note Date of Service The patient was seen on 10/21/18. NOTE Subjective: Patient was examined at bedside. She had no acute complaints. She states she feels fine. She denied any chest pain. She had been using difficulty. Of note, nursing staff report the patient had bradycardia at night. She also had tachycardia with physical eversion. She had no cardiac complaints during these events. Objective Physical exam GENERAL APPEARANCE: Alert and awake. no acute distress. LUNGS: Clear to auscultation bilaterally. HEART: Normal S1, S2. Irregularly irregular ABD: soft, nontender. MSK: Positive lower extremity swellings. Echo: 10/14/18 IMPRESSION: 1. Severe global left ventricular systolic dysfunction with global hypokinesis. 2. Aortic valve sclerosis with trace aortic regurgitation, but no aortic stenosis. 3. Mitral annulus calcification with moderate mitral regurgitation and subjectively, mildly enlarged left atrium. 4. Moderate tricuspid regurgitation with dilated right atrium. Pulmonary p ressure appeared to be only mildly elevated. 5. Left pleural effusion was noted. Trace pericardial effusion was noted, no evidence of cardiac tamponade. Plan Shortness of breath - likely 2/2 uncontrolled A. fib with RVR -Echo results above -Cardiology input appreciated -Cont eliquis for AC -We will cont to monitor the patient -She does not complain of shortness of breath. Today, she is currently satting 90% on room Acute Systolic CHF 2/2 A-Fibrillation -Discontinued IV Lasix, may restart if patient becomes decompensated. -Metoprolol tartate 25 mg BID -Strict ins/outs, daily weights Slurring of Speech on presentation No focal neurologic deficit noted CT head 10/14: Atrophy with periventricular leukomalacia and microvascular ischemic changes. Small - MRI / MRA of brain and MRA carotid with no acute findings ECHO as noted above c/w Telemetry monitoring CKD Stage III Serum Cr at baseline (1.11 today) s/p Lactic acidosis -Resolved DVT prophylaxis on Eliquis Disposition PT clearance. VS,Fishbone, I+O VS, Fishbone, I+O Laboratory Tests 10/21/18 07:36 Red Blood Count 5.15, Mean Corpuscular Volume 94.4, Mean Corpuscular Hemoglobin 31.1, Mean Corpuscular Hemoglobin Concent 32.9, Red Cell Distribution Width 14.6 H, Calcium Level 9.2 Vital Signs Date Time Temp Pulse Resp B/P (MAP) Pulse Ox O2 Delivery O2 Flow Rate FiO2 10/21/18 08:31 107 119/64 10/21/18 07:48 98.2 18 97 Room Air I&O- Last 24 Hours up to 6 AM 10/21/18 06:00 Intake Total 1080 ml Output Total 200 ml Balance 880 ml GME ATTESTATION GME ATTESTATION My faculty preceptor for this patient encounter was physically present during the encounter and was fully available. All aspects of the patient interview, examination, medical decision making process, and medical care plan development were reviewed and approved by the faculty preceptor. The faculty preceptor is aware and concurs with the plan as stated in the body of this note and will attest to such by his/her cosignature. TERE MICHAEL DO Oct 21, 2018 09:36 LAUREANO GUZMÁN DO Oct 21, 2018 19:11
[2018-10-21 16:00] VITALS: BP 122/60
[2018-10-21 20:00] VITALS: BP 110/60
[2018-10-21 23:54] VITALS: BP 117/58
[2018-10-22] VITALS (7 sets, daily range): BP systolic 93–144; BP diastolic 58–105
[2018-10-22] MEDS: FUROSEMIDE 40 MG/4 ML VIAL (J1940) IV SCH ×2 (00:05→12:00)
[2018-10-22 05:17] LABS: HEMATOCRIT 46.8 % (36.0-47.0); HEMOGLOBIN 15.6 g/dl (12.0-15.5); MEAN CORPUSCULAR HEMOGLOBIN 31.2 pg (27.0-33.0); MEAN CORPUSCULAR HGB CONC 33.3 g/dl (32.0-36.5); MEAN CORPUSCULAR VOLUME 93.6 fl (80.0-96.0); PLATELET COUNT, AUTOMATED 249 10^3/uL (150-450); WHITE BLOOD COUNT 6.4 10^3/uL (4.0-10.0)
[2018-10-22 05:49] LABS: CALCIUM LEVEL 8.8 MG/DL (8.8-10.2); CREATININE FOR GFR 1.1 MG/DL (0.55-1.30); GLOMERULAR FILTRATION RATE 50.9 (>32); POTASSIUM SERUM 4.6 MEQ/L (3.5-5.1)
[2018-10-22] MEDS: SLF 3 ML SYR IV SCH ×3 (06:00→20:20)
[2018-10-22] MEDS: METOPROLOL TART 25 MG TABLET PO SCH ×2 (08:39→20:20)
[2018-10-22] MEDS: APIXABAN 2.5 MG TAB (ELIQUIS) PO SCH ×2 (08:39→20:19)
[2018-10-22] MEDS: DIGOXIN 0.125 MG TAB PO SCH (08:40)
--- NOTE | 2018-10-22 14:48 | IPN ---
DATE OF SERVICE: 10/17/2018 Mrs. Maegan Haro was seen in the evening hours. She was supine in bed, in no acute distress at rest. There was no orthopnea or paroxysmal nocturnal dyspnea (PND). She was wondering when she can go home. She denies any chest pain, palpitations, shortness of breath. Her pedal edema has improved significantly. She was initially admitted with atrial fibrillation/flutter with a rapid ventricular rate and congestive heart failure. She was started on the short-acting beta-marielena, metoprolol tartrate, as well as the anticoagulation therapy and the IV Lasix. She underwent an echocardiogram, and it revealed a severely depressed global left ventricular systolic function. PHYSICAL EXAMINATION: Patient is alert and oriented, in no acute distress at rest, and her most recent vital signs revealed a blood pressure of 120/70 with a pulse of 90-94, respirations 16-18, and her maximum temperature is 99.9 degrees Fahrenheit with an oxygen saturation of 93-94% on room air. Examination of the head: Atraumatic. Neck is supple. No jugular venous distention (JVD) or carotid bruits. The lungs did not reveal any wheezing or crackles. The heart examination revealed an irregular heart sound without gallops. The point of maximal impulse (PMI) is displaced. There is no rub. Abdomen is soft and nontender. Extremities revealed no pedal edema. Neurological examination is negative for focal deficit. LABS: CBC done today revealed a WBC of 9.8, hemoglobin 15.6, hematocrit 47.4, and platelet 174,000. BMP reveals a sodium of 135, potassium 3.8, chloride 93, CO2 of 32, BUN 27, creatinine 1.2, and GFR 45.1 with fasting glucose of 97 and calcium 8.8. PT on admission was 14.1 with an INR of 1.08 and APTT of 26.4. Influenza A and B were negative. IMPRESSION: 1. Atrial fibrillation/flutter with uncontrolled ventricular rate. 2. Congestive heart failure secondary to left ventricular systolic dysfunction. 3. Hyperlipidemia. 4. Chronic kidney disease. Mrs. Maegan Haro seems to be stable from a cardiac point of view and well compensated. Her ventricular rate also seems to be under control. The short-acting beta-marielena can be increased as needed in order to control her heart rate; and if her blood pressure is too low and cannot tolerate it, we will consider digoxin. We will continue with the apixaban for prevention of thromboembolic events. Regarding her left ventricular systolic dysfunction, she will be started on a small dose of an angiotensin-converting enzyme (ADÁN) inhibitor with ramipril. She will continue with the beta-marielena/metoprolol tartrate. It was a pleasure to participate in the care of Mrs. Maegan Haro for her underlying cardiac condition. She appears to be stable from a cardiac point of view. Upon discharge, we will see her at the office. Please do not hesitate to call if any questions.
--- NOTE | 2018-10-22 19:09 | IPN ---
DATE: 10/22/2018 SUBJECTIVE: Patient is seen and examined in the room today. Patient denies any palpitations. Denies any chest pain. Denies any shortness of breath. No events reported. OBJECTIVE: VITAL SIGNS: Temperature is 96.3, pulse 85, respirations 19, blood pressure 118/66, pulse oximetry 91% on room air. GENERAL: No sign of acute distress. Alert and oriented times three. HEENT: Normocephalic, atraumatic. Extraocular movements grossly intact. CARDIOVASCULAR: Positive S1, S2, irregularly irregular. LUNGS: Clear to auscultation bilaterally. ABDOMEN: Soft, nontender. EXTREMITIES: No edema. LABORATORY DATA: WBC 6.4, hemoglobin 15.6, hematocrit 46.8, platelet count is 249. Sodium is 138, potassium 4.6, chloride 98. Carbon dioxide 32, BUN 38, creatinine 1.1. GFR is 50.9. Fasting glucose 93. Calcium 8.8. ASSESSMENT AND PLAN: 1. Acute respiratory distress secondary to uncontrolled atrial fibrillation with rapid ventricular response (RVR). Echo was performed. Patient was found to have ejection fraction (EF) of 20 to 25%. Cardiology is consulted. Currently patient is on metoprolol and digoxin. Patient is on Eliquis. 2. Systolic congestive heart failure exacerbation. On admission patient demonstrated fluid overload. Patient was placed on IV Lasix, however, due to the intermittent hypotension, patient's diuretics have been on hold multiple times. Continue monitoring intake and output and daily weights. 3. Kidney disease, stage III. Continue to monitor patient's renal profile. 4. Deep venous thrombosis (DVT) prophylaxis, Eliquis. 5. DISPOSITION: Appreciate loan adviser's assistance on the beta marielena and diuretic adjustment. Patient has passed physical therapy for discharge.
--- NOTE | 2018-10-22 20:46 | IPN ---
DATE: 10/22/2018 Mrs. Maegan Haro was seen earlier today, she laying supine in bed, in no acute distress and three members of the family were at bedside. There is no report of any chest pain. She does have some shortness of breath with activities but this has improved and remains stable. There is no report of bleeding. She denies any cough. She is looking forward to be discharged home. PHYSICAL EXAMINATION: Patient is alert and oriented, in no acute distress and her most recent vital signs revealed a blood pressure of 130/77, with a pulse of 71, respirations 19 and her maximum temperature is 98.2 degrees Fahrenheit with an oxygen saturation of 93-96% on room air. Head: Atraumatic. Neck is supple with extended jugular. Extremities: Reveal trace bilateral lower leg edema. Neurological examination: Negative for focal deficit. LABS: BMP done today revealed a sodium of 138, potassium 4.6, chloride 98, CO2 32, BUN 38, creatinine 1.1, GFR 50.9 and fasting glucose 93 with a calcium of 8.8. CBC revealed a WBC of 6.4, hemoglobin 15.6, hematocrit 46.8 and platelets 249,000. Mrs. Maegan Haro has been stable. She was admitted on 10/14/2018 with heart failure and atrial fibrillation with a rapid ventricular rate. She had an echocardiogram done and it revealed a severely depressed global left ventricular systolic function. She has been on current medications. She has not been on angiotensin-converting enzyme (ADÁN) inhibitor in view of her underlying kidney function. She appears to be well compensated and I will continue with the beta marielena as well as the furosemide. Her cardiomyopathy may be related to tachycardia due to atrial fibrillation/flutter and hopefully with controlling her heart rate with beta marielena and the digoxin, left ventricular ejection fraction (LVEF) will improve. She is currently on small dose of apixaban/Eliquis for prevention of thromboembolic events and she will continue the same. She has an appointment with the office on 11/03/2018. We have discussed about low salt diet and she will monitor her weight daily. She has manifested understanding.
[2018-10-23] VITALS (7 sets, daily range): BP systolic 94–116; BP diastolic 54–72
[2018-10-23 04:49] LABS: HEMATOCRIT 46.5 % (36.0-47.0); HEMOGLOBIN 15.4 g/dl (12.0-15.5); MEAN CORPUSCULAR HEMOGLOBIN 31.4 pg (27.0-33.0); MEAN CORPUSCULAR HGB CONC 33.1 g/dl (32.0-36.5); MEAN CORPUSCULAR VOLUME 94.9 fl (80.0-96.0); PLATELET COUNT, AUTOMATED 227 10^3/uL (150-450); WHITE BLOOD COUNT 7.3 10^3/uL (4.0-10.0)
[2018-10-23 05:11] LABS: CALCIUM LEVEL 8.8 MG/DL (8.8-10.2); CREATININE FOR GFR 1.05 MG/DL (0.55-1.30); GLOMERULAR FILTRATION RATE 53.7 (>32); POTASSIUM SERUM 3.9 MEQ/L (3.5-5.1)
[2018-10-23] MEDS: SLF 3 ML SYR IV SCH ×3 (06:00→21:26)
[2018-10-23] MEDS: METOPROLOL TART 25 MG TABLET PO SCH ×3 (09:19→20:04)
[2018-10-23] MEDS: DIGOXIN 0.125 MG TAB PO SCH (09:19)
[2018-10-23] MEDS: APIXABAN 2.5 MG TAB (ELIQUIS) PO SCH ×2 (09:19→19:51)
--- NOTE | 2018-10-23 11:19 | IPNPDOC ---
Text Note Date of Service The patient was seen on 10/23/18. NOTE CC Patient was examined at bedside. She had no complaints. She stated she was feeling fine. She was just getting ready for PT evaluation. Patient lives at home by herself. Objective Vitals: Listed below PE GENERAL APPEARANCE: Alert no acute distress. , Elderly female SKIN: Warm, well perfused. THORAX: Symmetrical. LUNGS: Clear to auscultation bilaterally. HEART: Normal S1, S2. No murmurs, no rubs, no gallops ABDOMEN: Soft. No masses. Bowel sounds are present. TRUNK/SPINE:Straight. EXTREMITIES: Mild edema Plan Shortness of breath - likely 2/2 uncontrolled A. fib with RVR ECHO notable for severe global left ventricular systolic dysfunction with an EF of 20-25%. Cardiology input appreciated Cont eliquis for AC Currently on metoprolol tartrate 25 mg BID. On digoxin Acute Systolic CHF 2/2 A-Fibrillation Cardiology consulted On diuretic ?Slurring of Speech on presentation No focal neurologic deficit noted CT head 10/14: Atrophy with periventricular leukomalacia and microvascular ischemic changes. Small - MRI / MRA of brain and MRA carotid with no acute findings ECHO as noted above c/w Telemetry monitoring CKD Stage III Serum Cr at baseline s/p Lactic acidosis DVT prophylaxis on Eliquis VS,Fishbone, I+O VS, Fishbone, I+O Laboratory Tests 10/23/18 04:34 Red Blood Count 4.90, Mean Corpuscular Volume 94.9, Mean Corpuscular Hemoglobin 31.4, Mean Corpuscular Hemoglobin Concent 33.1, Red Cell Distribution Width 14.5, Calcium Level 8.8 Vital Signs Date Time Temp Pulse Resp B/P (MAP) Pulse Ox O2 Delivery O2 Flow Rate FiO2 10/23/18 09:19 113 116/60 10/23/18 08:00 100.0 18 96 Room Air I&O- Last 24 Hours up to 6 AM 10/23/18 06:00 Intake Total 1200 ml Output Total 0 ml Balance 1200 ml GME ATTESTATION GME ATTESTATION My faculty preceptor for this patient encounter was physically present during the encounter and was fully available. All aspects of the patient interview, examination, medical decision making process, and medical care plan development were reviewed and approved by the faculty preceptor. The faculty preceptor is aware and concurs with the plan as stated in the body of this note and will attest to such by his/her cosignature. TERE MICHAEL DO Oct 23, 2018 11:19 LAUREANO GUZMÁN DO Oct 23, 2018 22:15
[2018-10-23] MEDS: FUROSEMIDE 40 MG/4 ML VIAL (J1940) IV SCH ×2 (12:00)
[2018-10-24 04:00] VITALS: BP 145/66
[2018-10-24 05:08] LABS: HEMATOCRIT 45.3 % (36.0-47.0); HEMOGLOBIN 14.8 g/dl (12.0-15.5); MEAN CORPUSCULAR HEMOGLOBIN 30.9 pg (27.0-33.0); MEAN CORPUSCULAR HGB CONC 32.7 g/dl (32.0-36.5); MEAN CORPUSCULAR VOLUME 94.6 fl (80.0-96.0); PLATELET COUNT, AUTOMATED 236 10^3/uL (150-450); RED BLOOD COUNT 4.79 10^6/uL (4.00-5.40); WHITE BLOOD COUNT 6.4 10^3/uL (4.0-10.0)
[2018-10-24 05:35] LABS: CALCIUM LEVEL 8.8 MG/DL (8.8-10.2); CREATININE FOR GFR 1.04 MG/DL (0.55-1.30); GLOMERULAR FILTRATION RATE 54.3 (>32); POTASSIUM SERUM 4.2 MEQ/L (3.5-5.1)
[2018-10-24] MEDS: SLF 3 ML SYR IV SCH ×2 (06:00→14:00)
[2018-10-24 08:00] VITALS: BP 150/63
[2018-10-24] MEDS: DIGOXIN 0.125 MG TAB PO SCH (08:48)
[2018-10-24 08:49] VITALS: BP 150/63
[2018-10-24] MEDS: APIXABAN 2.5 MG TAB (ELIQUIS) PO SCH (08:49)
[2018-10-24] MEDS ORDERED: FUROSEMIDE 20 MG TAB PO SCH (09:00)
[2018-10-24] MEDS ORDERED: METOPROLOL TART 25 MG TABLET PO SCH (09:00)
--- NOTE | 2018-10-24 10:16 | IPNPDOC ---
Text Note Date of Service The patient was seen on 10/24/18. NOTE Subjective: Patient was examined at bedside. She had no overt activities Objective Physical exam GENERAL APPEARANCE: Alert no acute distress. Resting under the covers. SKIN: Warm, well perfused. LUNGS: Clear to auscultation bilaterally. HEART: Normal S1, S2. No murmurs, no rubs, no gallops ABDOMEN: Soft. No masses. Bowel sounds are present. EXTREMITIES: 1 + edema, Right arm has bruising, erythema from IV placement, in elbow crease Plan Shortness of breath - likely 2/2 uncontrolled A. fib with RVR -ECHO notable for severe global left ventricular systolic dysfunction with an EF of 20-25%. -Cardiology consulted -continue eliquis -Currently on metoprolol tartrate 25 mg BID. -Digoxin 0.125 mg -Heart rate has been improving Acute Systolic CHF 2/2 A-Fibrillation -Cardiology consulted -lasix 20 mg Questionable Slurring of Speech on presentation -No focal neurologic deficit noted -CT head 10/14: Atrophy with periventricular leukomalacia and microvascular ischemic changes. Small - MRI / MRA of brain and MRA carotid with no acute findings -ECHO as noted above -c/w Telemetry monitoring CKD Stage III -Serum Cr at baseline -Continue to monitor -s/p Lactic acidosis Rehab -Continues to work with Physical Therapy -Awaiting PT clearance prior to D/C DVT prophylaxis -on Eliquis VS,Fishbone, I+O VS, Fishbone, I+O Laboratory Tests 10/24/18 04:57 Red Blood Count 4.79, Mean Corpuscular Volume 94.6, Mean Corpuscular Hemoglobin 30.9, Mean Corpuscular Hemoglobin Concent 32.7, Red Cell Distribution Width 14.4, Calcium Level 8.8 Vital Signs Date Time Temp Pulse Resp B/P (MAP) Pulse Ox O2 Delivery O2 Flow Rate FiO2 10/24/18 04:00 97.2 66 18 145/66 (92) 94 Room Air I&O- Last 24 Hours up to 6 AM 10/24/18 06:00 Intake Total 760 ml Balance 760 ml GME ATTESTATION GME ATTESTATION My faculty preceptor for this patient encounter was physically present during the encounter and was fully available. All aspects of the patient interview, examination, medical decision making process, and medical care plan development were reviewed and approved by the faculty preceptor. The faculty preceptor is aware and concurs with the plan as stated in the body of this note and will attest to such by his/her cosignature. TERE MICHAEL DO Oct 24, 2018 07:45
[2018-10-24] MEDS ORDERED: FURO20TA2 PO (11:12)
[2018-10-24] MEDS ORDERED: METO1TAB87 PO (11:12)
[2018-10-24] MEDS ORDERED: ELIQ2.5T PO (11:12)
[2018-10-24] MEDS ORDERED: DIGO0.12 PO (11:12)
--- NOTE | 2018-10-24 13:52 | DS.PDOC ---
Discharge Summary General Date of Admission Oct 14, 2018 at 16:47 Date of Discharge 10/24/18 Attending Physician: LAUREANO GUZMÁN DO Specialist/Consultants Involve: YOLANDA RICHARD MD Discharge Summary PCP: No current PCP. Plans to establish at the resident clinic PROCEDURES PERFORMED DURING STAY: Echocardiogram ADMITTING DIAGNOSES: 1. Increase in shortness of breath 2. Orthopnea DISCHARGE DIAGNOSES: 1. New onset A. fib with RVR 2. Hypertension COMPLICATIONS/CHIEF COMPLAINT: Atrial Fibrillation W Rvr, Chf. HISTORY OF PRESENT ILLNESS: Patient is an 78-year-old female, who apparently for the last 30 years, had not seen a doctor. She presented to the [facility] room with a few days of increasing shortness of breath. Along with complaints of occasional palpitation with retrosternal chest pain that was nonradiating. Initial EKG showed patient had new onset atrial fibrillation with rapid ventricular response. Initial evaluation showed a lactic acid of 2.7, troponin of 0.6[place] [address]. She was given IV Lopressor in the ED and hospitalist team was called for admission with cardiology consultation. Also there was questionable slow speech on presentation. Neurological workup including imaging and physical exam was negative. Throughout her stay she had no neurological deficits. HOSPITAL COURSE: Patient was admitted to the PCU with telemetry, cardiology was consulted. Patient was started on metoprolol tartrate, digoxin, and Eliquis. During her hospital stay, her A. fib with RVR, was able to be rate control with medication. Echocardiogram was ordered, results are below. She was also evaluated by physical therapy and cleared by physical therapy before discharge. She was set up with a new PCP, prior to discharge. She is also set up to also follow-up with cardiology upon discharge. She was discharged in good spirits, on day of discharge she had no complaints. She denied chest pain, denies any breathing problems, denied abdominal pain. DISCHARGE MEDICATIONS: Please see below. ALLERGIES: Please see below. PHYSICAL EXAMINATION ON DISCHARGE: VITAL SIGNS: Please see below. Physical Examination GENERAL APPEARANCE: Alert no acute distress. SKIN: Warm, well perfused. LUNGS: Clear to auscultation bilaterally. HEART: Irregular irregular S1, S2. No murmurs, no rubs, no gallops ABDOMEN: Soft. No masses. Bowel sounds are present. TRUNK/SPINE:Straight. EXTREMITIES: Moves all extremities equally. No gross deformities. PULSES: 2+ upper and lower extremity . Neuro: No illogical deficit LABORATORY DATA: Please see below. IMAGING: Head CT noncontrast 10/14/2018: Atrophy with periventricular leukomalacia and microvascular ischemic changes. Small basal ganglia lacunar infarcts. No acute intracranial hemorrhage or mass effect. Chest x-ray 10/14/2018:Moderate bilateral opacities consistent with effusions and consolidations. Findings likely represent pulmonary edema. Chest x-ray 10/15/2018: Pulmonary edema. Findings essentially unchanged compared to prior examination MR Angiography Neck Without Contrast: 10/15/2018:Essentially unremarkable MR angiogram of the neck Brain MRI 10/15/2018: Essentially unremarkable MR angiogram of the upper [place] and intracranial vertebrobasilar system. No intracranial stenosis. Distal right vertebral artery narrowing which will be discussed in the MR angiogram neck report MRI-Brain without Contrast:10/15/18: Slightly limited exam secondary to patient motion on multiple sequences. No MR evidence of an acute infarct and no evidence of hemorrhage or mass effect.Atrophy and moderate chronic microangiopathic supratentorial white matter changes ECHO: 10/14/18 IMPRESSION: 1. Severe global left ventricular systolic dysfunction with global hypokinesis. 2. Aortic valve sclerosis with trace aortic regurgitation, but no aortic stenosis. 3. Mitral annulus calcification with moderate mitral regurgitation and subjectively, mildly enlarged left atrium. 4. Moderate tricuspid regurgitation with dilated right atrium. Pulmonary pressure appeared to be only mildly elevated. 5. Left pleural effusion was noted. Trace pericardial effusion was noted, no evidence of cardiac tamponade. PROGNOSIS: Stable ACTIVITY: As tolerated DIET: Renal diet DISCHARGE PLAN: To home with home health DISPOSITION: Stable DISCHARGE INSTRUCTIONS: 1. Follow-up with home health 2. Establish care under new PCP ITEMS TO FOLLOWUP ON ON OUTPATIENT: 1. Follow up with PCP 2. Follow-up with cardiology 3. Take medication as prescribed DISCHARGE CONDITION:Stable TIME SPENT ON DISCHARGE: Greater than 35 minutes. Vital Signs/I&Os Vital Signs Date Time Temp Pulse Resp B/P (MAP) Pulse Ox O2 Delivery O2 Flow Rate FiO2 10/24/18 08:49 93 150/63 10/24/18 08:00 98.6 18 97 Room Air I&O- Last 24 Hours up to 6 AM 10/24/18 06:00 Intake Total 760 ml Balance 760 ml Laboratory Data Labs 24H Laboratory Tests 2 10/24/18 04:57: Nucleated Red Blood Cells % (auto) 0.0, Anion Gap 5L, Glomerular Filtration Rate 54.3, Blood Urea Nitrogen 35H, Creatinine 1.04, Sodium Level 137, Potassium Level 4.2, Chloride Level 101, Carbon Dioxide Level 31, Calcium Level 8.8 CBC/BMP Laboratory Tests 10/24/18 04:57 Red Blood Count 4.79, Mean Corpuscular Volume 94.6, Mean Corpuscular Hemoglobin 30.9, Mean Corpuscular Hemoglobin Concent 32.7, Red Cell Distribution Width 14.4, Calcium Level 8.8 Microbiology Microbiology 10/14/18 Respiratory Virus Panel (PCR) ([facility]) - Final, Complete Discharge Medications Scheduled (Digoxin) 125 Mcg Tab, 0.125 MG PO DAILY Apixaban Base (Eliquis) 2.5 Mg Tab, 1 TAB PO BID Furosemide (Furosemide) 20 Mg Tab, 20 MG PO DAILY Metoprolol Tartrate (Metoprolol Tartrate) 25 Mg Tab, 25 MG PO BID Allergies Coded Allergies: Penicillins (Verified Allergy, Intermediate, 10/14/18) GME ATTESTATION GME ATTESTATION My faculty preceptor for this patient encounter was physically present during the encounter and was fully available. All aspects of the patient interview, examination, medical decision making process, and medical care plan development were reviewed and approved by the faculty preceptor. The faculty preceptor is aware and concurs with the plan as stated in the body of this note and will attest to such by his/her cosignature. TERE MICHAEL DO Oct 24, 2018 12:03
== END 2018-10-24 16:04 | disposition home health service (06) | DRG 308 ==
LOC: M ED 14:00 → M ED INP 16:47 → M PCU 18:43
PROVIDERS: ADMIT Internal Medicine; ATTEND Internal Medicine
DX: I48.91 Unspecified atrial fibrillation (principal); I50.21 Acute systolic (congestive) heart failure; E87.2 Acidosis; Z88.0 Allergy status to penicillin; E78.5 Hyperlipidemia, unspecified; N18.3 Chronic kidney disease, stage 3 (moderate)

== ENCOUNTER → 2019-05-05 | Outpatient (REF) | payer MEDICARE, OTHER ==
[~2019-05-05] MED LIST: DIGO0.12 PO; ELIQ2.5T PO; FURO20TA2 PO; METO1TAB87 PO
== END ==
LOC: M SFHCPLAZ 14:52
PROVIDERS: ATTEND Family Medicine
DX: Z13.1 Encounter for screening for diabetes mellitus (principal)
CPT/HCPCS: 36415; 83036; G0463

== ENCOUNTER 2020-04-04 11:17 | Emergency (ER) | payer MEDICARE, OTHER ==
[~2020-04-04] VITALS: Ht 154.9 cm; Wt 48.6 kg
[~2020-04-04 11:17] MED LIST changes: -DIGO0.12 PO; +DIGO0.123 PO
[2020-04-04] MEDS ORDERED: TRIA1CR80 (11:27)
[2020-04-04] MEDS ORDERED: DIGI1TAB (11:27)
[2020-04-04] MEDS ORDERED: PRED20TA (11:27)
[2020-04-04 12:44] LABS: BASO % 0.4 % (0.0-1.0); HEMATOCRIT 44.4 % (36.0-47.0); HEMOGLOBIN 14.6 g/dl (12.0-15.5); LYMPH # 0.6 10^3/uL (1.5-5.0); MEAN CORPUSCULAR HGB CONC 32.9 g/dl (32.0-36.5); MEAN CORPUSCULAR VOLUME 97.4 fl (80.0-96.0); MONO # 0.4 10^3/uL (0.0-0.8); MONO % 3.9 % (0.0-5.0); NEUTROPHILS # 8.1 10^3/uL (1.5-8.5); PLATELET COUNT, AUTOMATED 193 10^3/uL (150-450); RED BLOOD COUNT 4.56 10^6/uL (4.00-5.40); WHITE BLOOD COUNT 9.2 10^3/uL (4.0-10.0)
[2020-04-04] MEDS ORDERED: VALT1TAB PO (13:42)
[2020-04-04] MEDS ORDERED: DOXY100C37 PO (13:42)
[2020-04-04] MEDS ORDERED: DOXYCYCLINE HYCLATE 100MG TABLET PO ONE (13:45)
[2020-04-04] MEDS ORDERED: valACYclovir HCL 500 MG TAB PO ONE (13:45)
[2020-04-04 13:48] VITALS: BP 135/86
== END 2020-04-04 14:00 | disposition home or self-care (01) ==
LOC: M ED 11:17
DX: B02.9 Zoster without complications (principal); L01.03 Bullous impetigo; I25.10 Atherosclerotic heart disease of native coronary artery without angina pectoris; Z79.899 Other long term (current) drug therapy; Z79.01 Long term (current) use of anticoagulants; Z88.0 Allergy status to penicillin

== ENCOUNTER → 2020-05-09 | Outpatient (REF) | payer MEDICARE, OTHER ==
[~2020-05-09] MED LIST changes: +DIGI1TAB; +DOXY100C37 PO; +PRED20TA; +TRIA1CR80; +VALT1TAB PO
[2020-05-09 17:58] LABS: HEMATOCRIT 37.5 % (36.0-47.0); HEMOGLOBIN 12.4 g/dl (12.0-15.5); MEAN CORPUSCULAR HEMOGLOBIN 32.7 pg (27.0-33.0); MEAN CORPUSCULAR HGB CONC 33.1 g/dl (32.0-36.5); MEAN CORPUSCULAR VOLUME 98.9 fl (80.0-96.0); PLATELET COUNT, AUTOMATED 272 10^3/uL (150-450); RED BLOOD COUNT 3.79 10^6/uL (4.00-5.40); WHITE BLOOD COUNT 7.9 10^3/uL (4.0-10.0)
[2020-05-09 18:34] LABS: ALBUMIN 3.3 GM/DL (3.2-5.2); BILIRUBIN,TOTAL 1.2 MG/DL (0.2-1.0); CALCIUM LEVEL 8.9 MG/DL (8.8-10.2); CHOLESTEROL RISK RATIO 2.539 (<5); CREATININE FOR GFR 0.95 MG/DL (0.55-1.30); THYROID STIMULATING HORMONE 3.51 uIU/ML (0.358-3.740)
== END ==
LOC: M SFHCPLAZ 15:54
PROVIDERS: ATTEND Family Medicine
DX: I50.22 Chronic systolic (congestive) heart failure (principal)

== ENCOUNTER 2020-06-07 07:30 | Inpatient (IN) | payer MEDICARE, OTHER ==
[2020-06-07] MEDS ORDERED: METOPROLOL TART 50 MG TAB As Ordered ONE (08:06)
[2020-06-07] MEDS ORDERED: AMIT25TA PO ×2 (21:34)
[2020-06-07] MEDS ORDERED: FURO20TA2 PO (21:34)
[2020-06-07] MEDS ORDERED: METO50TA7 PO (21:34)
[2020-06-07] MEDS ORDERED: ELIQ2.5T PO (21:34)
[2020-06-07 21:47] VITALS: BP 117/68
[2020-06-07] MEDS: APIXABAN 2.5 MG TAB (ELIQUIS) PO SCH (22:19)
[2020-06-07] MEDS: METOPROLOL TART 25 MG TABLET PO SCH (22:20)
[2020-06-08 06:00] VITALS: BP 110/58
[2020-06-08 06:16] LABS: BASO % 0.8 % (0.0-1.0); EOS # 0.1 10^3/uL (0.0-0.5); EOS % 2.1 % (0.0-3.0); HEMATOCRIT 31.7 % (36.0-47.0); HEMOGLOBIN 10.3 g/dl (12.0-15.5); LYMPH # 0.9 10^3/uL (1.5-5.0); LYMPH % 17.5 % (24.0-44.0); MEAN CORPUSCULAR HEMOGLOBIN 32.6 pg (27.0-33.0); MEAN CORPUSCULAR HGB CONC 32.5 g/dl (32.0-36.5); MEAN CORPUSCULAR VOLUME 100.3 fl (80.0-96.0); MONO # 0.6 10^3/uL (0.0-0.8); MONO % 11.8 % (0.0-5.0); NEUTROPHILS # 3.5 10^3/uL (1.5-8.5); NEUTROPHILS % 66.8 % (36.0-66.0); PLATELET COUNT, AUTOMATED 155 10^3/uL (150-450); RED BLOOD COUNT 3.16 10^6/uL (4.00-5.40); WHITE BLOOD COUNT 5.2 10^3/uL (4.0-10.0)
[2020-06-08 06:44] LABS: ALBUMIN 2.6 GM/DL (3.2-5.2); ALT/SGPT 12 U/L (12-78); BILIRUBIN,TOTAL 1.3 MG/DL (0.2-1.0); BLOOD UREA NITROGEN 16 MG/DL (7-18); CALCIUM LEVEL 8.3 MG/DL (8.8-10.2); CARBON DIOXIDE LEVEL 28 MEQ/L (21-32); CHLORIDE LEVEL 107 MEQ/L (98-107); CREATININE FOR GFR 0.82 MG/DL (0.55-1.30); GLOMERULAR FILTRATION RATE > 60.0 (>32); GLUCOSE, FASTING 78 MG/DL (70-100); POTASSIUM SERUM 4.2 MEQ/L (3.5-5.1); SODIUM LEVEL 138 MEQ/L (136-145); TOTAL PROTEIN 5.5 GM/DL (6.4-8.2)
[2020-06-08] MEDS: METOPROLOL TART 25 MG TABLET PO SCH ×2 (09:00→20:00)
[2020-06-08] MEDS: APIXABAN 2.5 MG TAB (ELIQUIS) PO SCH ×2 (09:31→20:00)
[2020-06-08 10:41] LABS: FOLATE 10.7 NG/ML (>5.4); VITAMIN B12 LEVEL 495 PG/ML (247-911)
[2020-06-08 14:00] VITALS: BP 103/64
--- NOTE | 2020-06-08 21:29 | IPNPDOC ---
Date Seen The patient was seen on 06/08/20. Progress Note SUBJECTIVE: Doing much better. Alert and oriented x3. Niece at bedside. Denies dizziness, weakness, CP, n/v/d. Working with PT/OT. OBJECTIVE PHYSICAL EXAMINATION: VITAL SIGNS: Please see below. GENERAL: NAD, comfortable in bed HEENT: PERRLA, EOMI CARDIOVASCULAR: RRR, normal S1, S2 RESPIRATORY: Lungs CTAB ABDOMINAL: soft, non tender EXTREMITIES: no deformity, normal ROM SKIN: R ear posterior skin tender to palpation, no obvious rash noted. Scarring noted on R upper chest, extending up skin overlying R SCM anterior and post. NEUROLOGICAL: AAOx3, no focal deficit PSYCHOLOGICAL: calm, cooperative LABORATORY DATA, IMAGING STUDIES, MICROBIOLOGY: Please see below. DVT prophylaxis ordered?: autumn Dumont. ASSESSMENT AND PLAN: PROBLEMS: 1. AMS: improved. likely 2/2 increased dose of amitriptyline. AAO x 3. Hearing aid in R ear. Window blinds open. Re-orientation primary tool, avoid antip sychotics if able when sundowning.CBC 2. Herpetic Neuralgia: shingles 2 mo ago. Affecting R ear, neck, upper chest. Avoid TCAs, Gabapentin. Topical therapy with lidocaine gel 2%. 3. afib: eliquis 2.5 mg BID, metoprolol 25 mg PO q12h. 4. CHF: euvolemic. BB. DISPOSITION: SW, PT/OT assessment for home assist. VS, I&O, 24H, Fishbone Vital Signs/I&O Vital Signs Date Time Temp Pulse Resp B/P (MAP) Pulse Ox O2 Delivery O2 Flow Rate FiO2 06/08/20 20:00 86 105/60 06/08/20 14:00 97.8 17 97 Room Air I&O- Last 24 Hours up to 6 AM 06/08/20 06:00 Intake Total 100 ml Output Total 400 ml Balance -300 ml Laboratory Data 24H LABS Laboratory Tests 2 06/08/20 05:52: Immature Granulocyte % (Auto) 1.0, Neutrophils (%) (Auto) 66.8H, Lymphocytes (%) (Auto) 17.5L, Monocytes (%) (Auto) 11.8H, Eosinophils (%) (Auto) 2.1, Basophils (%) (Auto) 0.8, Neutrophils # (Auto) 3.5, Lymphocytes # (Auto) 0.9L, Monocytes # (Auto) 0.6, Eosinophils # (Auto) 0.1, Basophils # (Auto) 0.0, Nucleated Red Blood Cells % (auto) 0.0, Anion Gap 3L, Glomerular Filtration Rate > 60.0, Calcium Level 8.3L, Magnesium Level 2.0, Total Bilirubin 1.3H, Aspartate Amino Transf (AST/SGOT) 13, Alanine Aminotransferase (ALT/SGPT) 12, Alkaline Phosphatase 61, Total Protein 5.5L, Albumin 2.6L, Albumin/Globulin Ratio 0.9L, Vitamin B12 Level 495, Folate 10.7, Syphilis Serology NONREACTIVE CBC/BMP Laboratory Tests 06/08/20 05:52 EUSEBIA DOBBINS MD Jun 08, 2020 21:29
[2020-06-08 22:00] VITALS: BP 106/63
[2020-06-09 06:00] VITALS: BP 115/74
[2020-06-09 06:29] LABS: BASO % 0.8 % (0.0-1.0); EOS # 0.2 10^3/uL (0.0-0.5); EOS % 4.5 % (0.0-3.0); HEMATOCRIT 33.9 % (36.0-47.0); HEMOGLOBIN 11.2 g/dl (12.0-15.5); LYMPH # 0.9 10^3/uL (1.5-5.0); LYMPH % 16.9 % (24.0-44.0); MEAN CORPUSCULAR HEMOGLOBIN 32.7 pg (27.0-33.0); MEAN CORPUSCULAR VOLUME 98.8 fl (80.0-96.0); MONO # 0.6 10^3/uL (0.0-0.8); MONO % 10.7 % (0.0-5.0); NEUTROPHILS # 3.5 10^3/uL (1.5-8.5); NEUTROPHILS % 66.3 % (36.0-66.0); PLATELET COUNT, AUTOMATED 173 10^3/uL (150-450); RED BLOOD COUNT 3.43 10^6/uL (4.00-5.40); WHITE BLOOD COUNT 5.3 10^3/uL (4.0-10.0)
[2020-06-09 06:51] LABS: ALBUMIN 2.7 GM/DL (3.2-5.2); ALT/SGPT 13 U/L (12-78); BILIRUBIN,TOTAL 1.1 MG/DL (0.2-1.0); BLOOD UREA NITROGEN 13 MG/DL (7-18); CALCIUM LEVEL 8.3 MG/DL (8.8-10.2); CARBON DIOXIDE LEVEL 27 MEQ/L (21-32); CHLORIDE LEVEL 108 MEQ/L (98-107); CREATININE FOR GFR 0.65 MG/DL (0.55-1.30); GLOMERULAR FILTRATION RATE > 60.0 (>32); GLUCOSE, FASTING 85 MG/DL (70-100); POTASSIUM SERUM 4.1 MEQ/L (3.5-5.1); SODIUM LEVEL 139 MEQ/L (136-145); TOTAL PROTEIN 5.9 GM/DL (6.4-8.2)
--- NOTE | 2020-06-09 07:06 | IPNPDOC ---
Date Seen The patient was seen on 06/09/20. Progress Note SUBJECTIVE: Doing much better. Alert and oriented x3. Niece at bedside. Denies dizziness, weakness, CP, n/v/d. Working with PT/OT. OBJECTIVE PHYSICAL EXAMINATION: VITAL SIGNS: Please see below. GENERAL: NAD, comfortable in bed HEENT: PERRLA, EOMI CARDIOVASCULAR: RRR, normal S1, S2 RESPIRATORY: Lungs CTAB ABDOMINAL: soft, non tender EXTREMITIES: no deformity, normal ROM SKIN: R ear posterior skin tender to palpation, no obvious rash noted. Scarring noted on R upper chest, extending up skin overlying R SCM anterior and post. NEUROLOGICAL: AAOx3, no focal deficit PSYCHOLOGICAL: calm, cooperative LABORATORY DATA, IMAGING STUDIES, MICROBIOLOGY: Please see below. DVT prophylaxis ordered?: autumn Dumont. ASSESSMENT AND PLAN: PROBLEMS: 1. AMS: improved. likely 2/2 increased dose of amitriptyline. AAO x 3. Hearing aid in R ear. Window blinds open. Re-orientation primary tool, avoid antip sychotics if able when sundowning.CBC. Placed BASEBALL INSPECTOR consult, eval for dementia, cognitive functioning. 2. Herpetic Neuralgia: shingles 2 mo ago. Affecting R ear, neck, upper chest. Avoid TCAs, Gabapentin. Topical therapy with lidocaine gel 2%. 3. afib: eliquis 2.5 mg BID, metoprolol 25 mg PO q12h. 4. CHF: euvolemic. BB. DISPOSITION: SW, PT/OT assessment for home assist. BASEBALL INSPECTOR eval pending. VS, I&O, 24H, Fishbone Vital Signs/I&O Vital Signs Date Time Temp Pulse Resp B/P (MAP) Pulse Ox O2 Delivery O2 Flow Rate FiO2 06/09/20 06:00 98.7 107 18 115/74 (88) 95 Room Air I&O- Last 24 Hours up to 6 AM 06/09/20 06:00 Intake Total 940 ml Output Total 0 ml Balance 940 ml Laboratory Data 24H LABS Laboratory Tests 2 06/09/20 06:00: Immature Granulocyte % (Auto) 0.8, Neutrophils (%) (Auto) 66.3H, Lymphocytes (%) (Auto) 16.9L, Monocytes (%) (Auto) 10.7H, Eosinophils (%) (Auto) 4.5H, Basophils (%) (Auto) 0.8, Neutrophils # (Auto) 3.5, Lymphocytes # (Auto) 0.9L, Monocytes # (Auto) 0.6, Eosinophils # (Auto) 0.2, Basophils # (Auto) 0.0, Nucleated Red Blood Cells % (auto) 0.0, Anion Gap 4L, Glomerular Filtration Rate > 60.0, Calcium Level 8.3L, Total Bilirubin 1.1H, Aspartate Amino Transf (AST/SGOT) 15, Alanine Aminotransferase (ALT/SGPT) 13, Alkaline Phosphatase 64, Total Protein 5.9L, Albumin 2.7L, Albumin/Globulin Ratio 0.8L CBC/BMP Laboratory Tests 06/09/20 06:00 EUSEBIA DOBBINS MD Jun 09, 2020 07:06
[2020-06-09] MEDS: APIXABAN 2.5 MG TAB (ELIQUIS) PO SCH ×2 (09:31→21:38)
[2020-06-09] MEDS: METOPROLOL TART 25 MG TABLET PO SCH ×2 (09:32→21:00)
[2020-06-09 14:00] VITALS: BP 116/67
[2020-06-09 22:00] VITALS: BP 118/68
[2020-06-10 06:00] VITALS: BP 127/78
[2020-06-10] MEDS: APIXABAN 2.5 MG TAB (ELIQUIS) PO SCH ×2 (09:38→21:04)
[2020-06-10] MEDS: METOPROLOL TART 25 MG TABLET PO SCH ×2 (09:38→21:03)
[2020-06-10] MEDS: ACETAMINOPHEN TAB 650MG DOSE (2X325MG) PO PRN (13:31)
[2020-06-10 14:00] VITALS: BP 108/69
--- NOTE | 2020-06-10 21:54 | IPNPDOC ---
Date Seen The patient was seen on 06/10/20. Progress Note SUBJECTIVE: More confused today. Alert and oriented x1-2. Speaking about a in the room, who has been for a long time. Denies dizziness, weakness, CP, n/v/d. OBJECTIVE PHYSICAL EXAMINATION: VITAL SIGNS: Please see below. GENERAL: NAD, comfortable in bed HEENT: PERRLA, EOMI CARDIOVASCULAR: RRR, normal S1, S2 RESPIRATORY: Lungs CTAB ABDOMINAL: soft, non tender EXTREMITIES: no deformity, normal ROM SKIN: R ear posterior skin tender to palpation, no obvious rash noted. Scarring noted on R upper chest, extending up skin overlying R SCM anterior and post. NEUROLOGICAL: AAOx3, no focal deficit PSYCHOLOGICAL: calm, cooperative LABORATORY DATA, IMAGING STUDIES, MICROBIOLOGY: Please see below. DVT prophylaxis ordered?: autumn Dumont. ASSESSMENT AND PLAN: PROBLEMS: 1. AMS: improved. likely 2/2 increased dose of amitriptyline. AAO x 3. Hearing aid in R ear. Window blinds open. Re-orientation primary tool, avoid antipsychotics if able when sundowning.CBC. Placed QUANTITATIVE CONSULTANT consult, eval for dementia, cognitive functioning. Not cleared for DC from PT/QUANTITATIVE CONSULTANT standpoint. Cognitive decline. 2. Herpetic Neuralgia: shingles 2 mo ago. Affecting R ear, neck, upper chest. Avoid TCAs, Gabapentin. Topical therapy with lidocaine gel 2%. 3. afib: eliquis 2.5 mg BID, metoprolol 25 mg PO q12h. 4. CHF: euvolemic. BB. DISPOSITION: SW, PT/OT assessment for home assist. QUANTITATIVE CONSULTANT eval. Needs additional supervised PT. VS, I&O, 24H, Fishbone Vital Signs/I&O Vital Signs Date Time Temp Pulse Resp B/P (MAP) Pulse Ox O2 Delivery O2 Flow Rate FiO2 06/10/20 21:03 101 113/68 06/10/20 14:00 98.8 19 96 Room Air I&O- Last 24 Hours up to 6 AM 06/10/20 06:00 Intake Total 820 ml Output Total 0 ml Balance 820 ml EUSEBIA DOBBINS MD Jun 10, 2020 21:54
[2020-06-10 22:00] VITALS: BP 113/69
[2020-06-10] MEDS: LIDOCAINE 2% JELLY 30ML TOP SCH (22:43)
[2020-06-11 06:00] VITALS: BP 112/65
[2020-06-11] MEDS: METOPROLOL TART 25 MG TABLET PO SCH ×2 (09:00→20:20)
[2020-06-11] MEDS: APIXABAN 2.5 MG TAB (ELIQUIS) PO SCH ×2 (09:40→20:20)
[2020-06-11] MEDS: LIDOCAINE 2% JELLY 30ML TOP SCH ×2 (12:03→20:21)
[2020-06-11] MEDS: QUEtiapine FUMARATE 25 MG TAB PO PRN (12:03)
--- NOTE | 2020-06-11 14:37 | IPNPDOC ---
Date Seen The patient was seen on 06/11/20. Progress Note SUBJECTIVE: agitated today. Believes she is meeting her . Mistakes the time. Frequently getting up, neglects walking aids. OBJECTIVE PHYSICAL EXAMINATION: VITAL SIGNS: Please see below. GENERAL: NAD, comfortable in bed HEENT: PERRLA, EOMI CARDIOVASCULAR: RRR, normal S1, S2 RESPIRATORY: Lungs CTAB ABDOMINAL: soft, non tender EXTREMITIES: no deformity, normal ROM SKIN: R ear posterior skin tender to palpation, no obvious rash noted. Scarring noted on R upper chest, extending up skin overlying R SCM anterior and post. NEUROLOGICAL: agitated, confused PSYCHOLOGICAL: calm, cooperative LABORATORY DATA, IMAGING STUDIES, MICROBIOLOGY: Please see below. DVT prophylaxis ordered?: autumn Dumont. ASSESSMENT AND PLAN: PROBLEMS: 1. AMS: improved. likely 2/2 increased dose of amitriptyline. AAO x 3. Hearing aid in R ear. CBC. Placed CIGAR PACKING EXAMINER consult, eval for dementia, cognitive functioning. Not cleared for DC from PT/CIGAR PACKING EXAMINER. Requires 24 hour care. Will likely require placement. Add seroquel 25 mg BID PO prn for agitation. Check EKG for QTc. 2. Herpetic Neuralgia: shingles 2 mo ago. Affecting R ear, neck, upper chest. Avoid TCAs, Gabapentin. Topical therapy with lidocaine gel 2%. 3. afib: eliquis 2.5 mg BID, metoprolol 25 mg PO q12h. 4. CHF: euvolemic. BB. DISPOSITION: SW, PT/OT assessment for home assist. CIGAR PACKING EXAMINER eval. Needs additional supervised PT. VS, I&O, 24H, Fishbone Vital Signs/I&O Vital Signs Date Time Temp Pulse Resp B/P (MAP) Pulse Ox O2 Delivery O2 Flow Rate FiO2 06/11/20 09:00 63 79/61 06/11/20 06:00 97.3 16 94 Room Air I&O- Last 24 Hours up to 6 AM 06/11/20 06:00 Intake Total 370 ml Output Total 0 ml Balance 370 ml EUSEBIA DOBBINS MD Jun 11, 2020 14:37
[2020-06-11 15:00] VITALS: BP 103/67
[2020-06-11] MEDS: cefTRIAXone SOD 1 GM in D5W MINI-BAG PLUS 50 ML IV SCH (18:13)
[2020-06-11 19:01] LABS: BASO # 0.1 10^3/uL (0.0-0.2); BASO % 1.2 % (0.0-1.0); EOS # 0.2 10^3/uL (0.0-0.5); EOS % 3.9 % (0.0-3.0); HEMATOCRIT 34.9 % (36.0-47.0); HEMOGLOBIN 11.4 g/dl (12.0-15.5); LYMPH # 1.3 10^3/uL (1.5-5.0); LYMPH % 24.5 % (24.0-44.0); MEAN CORPUSCULAR HEMOGLOBIN 32.4 pg (27.0-33.0); MEAN CORPUSCULAR HGB CONC 32.7 g/dl (32.0-36.5); MEAN CORPUSCULAR VOLUME 99.1 fl (80.0-96.0); MONO # 0.6 10^3/uL (0.0-0.8); MONO % 11.4 % (0.0-5.0); NEUTROPHILS % 58.4 % (36.0-66.0); PLATELET COUNT, AUTOMATED 207 10^3/uL (150-450); RED BLOOD COUNT 3.52 10^6/uL (4.00-5.40); WHITE BLOOD COUNT 5.1 10^3/uL (4.0-10.0)
[2020-06-11 19:34] LABS: ALBUMIN 2.9 GM/DL (3.2-5.2); ALT/SGPT 13 U/L (12-78); BILIRUBIN,TOTAL 1.2 MG/DL (0.2-1.0); BLOOD UREA NITROGEN 16 MG/DL (7-18); CALCIUM LEVEL 8.5 MG/DL (8.8-10.2); CARBON DIOXIDE LEVEL 25 MEQ/L (21-32); CHLORIDE LEVEL 106 MEQ/L (98-107); GLOMERULAR FILTRATION RATE > 60.0 (>32); GLUCOSE, FASTING 82 MG/DL (70-100); POTASSIUM SERUM 4.2 MEQ/L (3.5-5.1); SODIUM LEVEL 138 MEQ/L (136-145)
[2020-06-11 20:04] LABS: ALBUMIN 3.4 GM/DL (3.2-5.2); ALT/SGPT 19 U/L (12-78); BILIRUBIN,DIRECT 0.2 MG/DL (0.0-0.2); BILIRUBIN,TOTAL 0.9 MG/DL (0.2-1.0); BLOOD UREA NITROGEN 15 MG/DL (7-18); CALCIUM LEVEL 9.1 MG/DL (8.8-10.2); CARBON DIOXIDE LEVEL 29 MEQ/L (21-32); CHLORIDE LEVEL 106 MEQ/L (98-107); CPK CREATINE PHOSPHOKINASE 76 U/L (26-192); FREE T4 1.06 NG/DL (0.76-1.46); GLOMERULAR FILTRATION RATE 56.5 (>32); GLUCOSE, FASTING 92 MG/DL (70-100); MB/CK RELATIVE INDEX 1.32 (< OR =4); POTASSIUM SERUM 4.3 MEQ/L (3.5-5.1); SODIUM LEVEL 139 MEQ/L (136-145); TOTAL PROTEIN 6.8 GM/DL (6.4-8.2); TROPONIN I < 0.02 NG/ML (< 0.10)
[2020-06-11 22:00] VITALS: BP 113/64
[2020-06-12 06:00] VITALS: BP 109/66
[2020-06-12] MEDS: APIXABAN 2.5 MG TAB (ELIQUIS) PO SCH ×2 (09:02→21:15)
[2020-06-12] MEDS: METOPROLOL TART 25 MG TABLET PO SCH ×2 (09:05→21:00)
[2020-06-12] MEDS: LIDOCAINE 2% JELLY 30ML TOP SCH ×2 (09:05→21:16)
[2020-06-12] MEDS: ACETAMINOPHEN TAB 650MG DOSE (2X325MG) PO PRN (09:06)
[2020-06-12 14:00] VITALS: BP 114/73
[2020-06-12] MEDS: cefTRIAXone SOD 1 GM in D5W MINI-BAG PLUS 50 ML IV SCH (17:12)
[2020-06-12] MEDS: QUEtiapine FUMARATE 25 MG TAB PO PRN (17:12)
--- NOTE | 2020-06-12 17:22 | IPNPDOC ---
Date Seen The patient was seen on 06/12/20. Progress Note SUBJECTIVE: calm and collected today. No complaints. OBJECTIVE PHYSICAL EXAMINATION: VITAL SIGNS: Please see below. GENERAL: NAD, comfortable in bed HEENT: PERRLA, EOMI CARDIOVASCULAR: RRR, normal S1, S2 RESPIRATORY: Lungs CTAB ABDOMINAL: soft, non tender EXTREMITIES: no deformity, normal ROM SKIN: R ear posterior skin tender to palpation, no obvious rash noted. Scarring noted on R upper chest, extending up skin overlying R SCM anterior and post. NEUROLOGICAL: agitated, confused PSYCHOLOGICAL: calm, cooperative LABORATORY DATA, IMAGING STUDIES, MICROBIOLOGY: Please see below. DVT prophylaxis ordered?: Y, eliquis. ASSESSMENT AND PLAN: PROBLEMS: 1. AMS: improved. likely 2/2 increased dose of amitriptyline. AAO x 3. Hearing aid in R ear. TSH mildly elevated, FT4 wnl. Placed BLISTER RUST ERADICATOR consult, eval for dementia, cognitive functioning. Not cleared for DC from PT/BLISTER RUST ERADICATOR. Requires 24 hour care. Will likely require placement. Change seroquel to 25 mg PO PRN QHS. Check EKG for QTc. 2. Herpetic Neuralgia: shingles 2 mo ago. Affecting R ear, neck, upper chest. Avoid TCAs, Gabapentin. Topical therapy with lidocaine gel 2%. 3. afib: eliquis 2.5 mg BID, metoprolol 25 mg PO q12h. HR well controlled today. 4. CHF: euvolemic. BB. 5. Suspected UTI: reviewed urine culture from ED, e coli [id number] CFUs. DC ceftriaxone. No WBC. No fever. DISPOSITION: , PT/OT assessment for home assist. BLISTER RUST ERADICATOR eval. Needs additional supervised PT. VS, I&O, 24H, [facility] Vital Signs/I&O Vital Signs Date Time Temp Pulse Resp B/P (MAP) Pulse Ox O2 Delivery O2 Flow Rate FiO2 06/12/20 14:00 97.8 90 20 114/73 (87) 98 Room Air I&O- Last 24 Hours up to 6 AM 06/12/20 06:00 Intake Total 1080 ml Output Total 0 ml Balance 1080 ml Laboratory Data 24H LABS Laboratory Tests 2 06/11/20 18:33: Immature Granulocyte % (Auto) 0.6, Neutrophils (%) (Auto) 58.4, Lymphocytes (%) (Auto) 24.5, Monocytes (%) (Auto) 11.4H, Eosinophils (%) (Auto) 3.9H, Basophils (%) (Auto) 1.2H, Neutrophils # (Auto) 3.0, Lymphocytes # (Auto) 1.3L, Monocytes # (Auto) 0.6, Eosinophils # (Auto) 0.2, Basophils # (Auto) 0.1, Nucleated Red Blood Cells % (auto) 0.0, Anion Gap 7L, Glomerular Filtration Rate > 60.0, Calcium Level 8.5L, Total Bilirubin 1.2H, Aspartate Amino Transf (AST/SGOT) 17, Alanine Aminotransferase (ALT/SGPT) 13, Alkaline Phosphatase 72, Total Protein 6.0L, Albumin 2.9L, Albumin/Globulin Ratio 0.9L CBC/BMP Laboratory Tests 06/11/20 18:33 EUSEBIA DOBBINS MD Jun 12, 2020 17:22
[2020-06-12 22:00] VITALS: BP 113/73
[2020-06-13 06:00] VITALS: BP 114/69
[2020-06-13] MEDS: LIDOCAINE 2% JELLY 30ML TOP SCH ×2 (08:24→22:09)
[2020-06-13] MEDS: ACETAMINOPHEN TAB 650MG DOSE (2X325MG) PO PRN (08:25)
[2020-06-13] MEDS: APIXABAN 2.5 MG TAB (ELIQUIS) PO SCH ×2 (08:25→22:08)
[2020-06-13] MEDS: METOPROLOL TART 25 MG TABLET PO SCH ×2 (08:27→22:08)
[2020-06-13 14:00] VITALS: BP 111/86
[2020-06-13 22:00] VITALS: BP 113/64
--- NOTE | 2020-06-13 22:18 | IPNPDOC ---
Date Seen The patient was seen on 06/13/20. Progress Note SUBJECTIVE: calm and collected today. No complaints. OBJECTIVE PHYSICAL EXAMINATION: VITAL SIGNS: Please see below. GENERAL: NAD, comfortable in bed HEENT: PERRLA, EOMI CARDIOVASCULAR: RRR, normal S1, S2 RESPIRATORY: Lungs CTAB ABDOMINAL: soft, non tender EXTREMITIES: no deformity, normal ROM SKIN: R ear posterior skin tender to palpation, no obvious rash noted. Scarring noted on R upper chest, extending up skin overlying R SCM anterior and post. NEUROLOGICAL: agitated, confused PSYCHOLOGICAL: calm, cooperative LABORATORY DATA, IMAGING STUDIES, MICROBIOLOGY: Please see below. DVT prophylaxis ordered?: Y, eliquis. ASSESSMENT AND PLAN: PROBLEMS: 1. AMS: improved. likely 2/2 increased dose of amitriptyline. AAO x 3. Hearing aid in R ear. TSH mildly elevated, FT4 wnl. Placed FIRE CONTROL MECHANIC consult, eval for dementia, cognitive functioning. Not cleared for DC from PT/FIRE CONTROL MECHANIC. Requires 24 hour care. Will likely require placement. Change seroquel to 25 mg PO PRN QHS. QTC wnl 2. Herpetic Neuralgia: shingles 2 mo ago. Affecting R ear, neck, upper chest. Avoid TCAs, Gabapentin. Topical therapy with lidocaine gel 2%. 3. afib: eliquis 2.5 mg BID, metoprolol 25 mg PO q12h. HR well controlled today. 4. CHF: euvolemic. BB. 5. Suspected UTI: reviewed urine culture from ED, e coli [id number] CFUs. DC ceft riaxone. No WBC. No fever. DISPOSITION: SW, PT/OT assessment for home assist. FIRE CONTROL MECHANIC eval. Needs additional supervised PT. VS, I&O, 24H, Fishbone Vital Signs/I&O Vital Signs Date Time Temp Pulse Resp B/P (MAP) Pulse Ox O2 Delivery O2 Flow Rate FiO2 06/13/20 22:08 99 113/64 06/13/20 14:00 98.0 22 96 Room Air I&O- Last 24 Hours up to 6 AM 06/13/20 05:59 Intake Total 730 ml Output Total 0 ml Balance 730 ml EUSEBIA DOBBINS MD Jun 13, 2020 22:18
[2020-06-14] MEDS: QUEtiapine FUMARATE 25 MG TAB PO PRN ×2 (01:07→17:19)
[2020-06-14 06:00] VITALS: BP 115/68
[2020-06-14 06:35] LABS: BASO # 0.1 10^3/uL (0.0-0.2); BASO % 1.2 % (0.0-1.0); EOS # 0.2 10^3/uL (0.0-0.5); HEMATOCRIT 34.9 % (36.0-47.0); HEMOGLOBIN 11.7 g/dl (12.0-15.5); LYMPH # 1.4 10^3/uL (1.5-5.0); LYMPH % 22.7 % (24.0-44.0); MEAN CORPUSCULAR HEMOGLOBIN 33.5 pg (27.0-33.0); MEAN CORPUSCULAR HGB CONC 33.5 g/dl (32.0-36.5); MONO # 0.6 10^3/uL (0.0-0.8); MONO % 10.4 % (0.0-5.0); NEUTROPHILS # 3.7 10^3/uL (1.5-8.5); NEUTROPHILS % 61.7 % (36.0-66.0); PLATELET COUNT, AUTOMATED 229 10^3/uL (150-450); RED BLOOD COUNT 3.49 10^6/uL (4.00-5.40)
[2020-06-14 07:07] LABS: ALT/SGPT 15 U/L (12-78); BILIRUBIN,TOTAL 0.8 MG/DL (0.2-1.0); BLOOD UREA NITROGEN 23 MG/DL (7-18); CALCIUM LEVEL 8.8 MG/DL (8.8-10.2); CARBON DIOXIDE LEVEL 26 MEQ/L (21-32); CHLORIDE LEVEL 108 MEQ/L (98-107); CREATININE FOR GFR 0.76 MG/DL (0.55-1.30); GLOMERULAR FILTRATION RATE > 60.0 (>32); GLUCOSE, FASTING 88 MG/DL (70-100); POTASSIUM SERUM 4.6 MEQ/L (3.5-5.1); SODIUM LEVEL 140 MEQ/L (136-145); TOTAL PROTEIN 6.3 GM/DL (6.4-8.2)
[2020-06-14] MEDS: METOPROLOL TART 25 MG TABLET PO SCH (09:00)
[2020-06-14] MEDS: LIDOCAINE 2% JELLY 30ML TOP SCH ×2 (09:17→21:56)
[2020-06-14] MEDS: APIXABAN 2.5 MG TAB (ELIQUIS) PO SCH ×2 (09:17→21:56)
[2020-06-14 09:30] VITALS: BP 90/50
[2020-06-14 10:30] VITALS: BP 98/66
[2020-06-14 14:00] VITALS: BP 101/65
--- NOTE | 2020-06-14 14:28 | IPNPDOC ---
Text Note Date of Service The patient was seen on 06/14/20. NOTE SUBJECTIVE: No overnight events, Calm and cooperative. More oriented to place and person. However very poor short term memory OBJECTIVE PHYSICAL EXAMINATION: VITAL SIGNS: Please see below. GENERAL: NAD, comfortable in bed, frail, cachectic. HEENT: PERRLA, EOMI CARDIOVASCULAR: RRR, normal S1, S2, no murmur or rub or gallop RESPIRATORY: Lungs CTAB ABDOMINAL: soft, non tender EXTREMITIES: no deformity, normal ROM SKIN: R ear posterior skin tender to palpation, no obvious rash noted. Scarring noted on R upper chest, extending up skin overlying R SCM anterior and post. NEUROLOGICAL: agitated, confused PSYCHOLOGICAL: calm, cooperative LABORATORY DATA, IMAGING STUDIES, MICROBIOLOGY: Please see below. DVT prophylaxis ordered?: autumn Dumont. ASSESSMENT AND PLAN: Acute encephalopathy on the back ground of Dementia: improved. Likely 2/2 increased dose of amitriptyline. AAO x 3. Hearing aid in R ear. TSH mildly elevated, FT4 wnl. Determined to have Severe cognitive impairment at baseline: Not cleared for DC from PT/QUARANTINE INSPECTOR. Requires 24x7 care. Will likely require placement. Seroquel to 25 mg PO PRN QHS. QTC wnl Herpetic Neuralgia: shingles 2 mo ago. Affecting R ear, neck, upper chest. Avoid TCAs, Gabapentin. Topical therapy with lidocaine gel 2%. Afib: eliquis 2.5 mg BID, metoprolol 25 mg PO q12h. HR well controlled today. Chronic systolic CHF with EF of 20 to 25 % : euvolemic. at present. UTI Ruled out: reviewed urine culture from ED, e coli [id number] CFUs. DC ceftriaxone. No WBC. No fever. DISPOSITION: SW, PT/OT assessment for home assist. QUARANTINE INSPECTOR eval. Needs additional supervised PT. VS,Fishbone, I+O VS, Fishbone, I+O Laboratory Tests 06/14/20 05:45 06/14/20 05:55 Vital Signs Date Time Temp Pulse Resp B/P (MAP) Pulse Ox O2 Delivery O2 Flow Rate FiO2 06/14/20 14:00 98.0 88 15 101/65 (77) 99 Room Air I&O- Last 24 Hours up to 6 AM 06/14/20 06:00 Intake Total 390 ml Output Total 500 ml Balance -110 ml RAYLUZMARIA MD Jun 14, 2020 14:28
[2020-06-14] MEDS ORDERED: METOPROLOL TART 12.5 MG PER 1/2 TAB PO SCH (21:00)
[2020-06-14 22:00] VITALS: BP 106/66
[2020-06-15 06:00] VITALS: BP 117/78
[2020-06-15] MEDS: APIXABAN 2.5 MG TAB (ELIQUIS) PO SCH ×2 (08:30→21:39)
[2020-06-15] MEDS: METOPROLOL TART 25 MG TABLET PO SCH ×2 (08:31→21:00)
[2020-06-15] MEDS ORDERED: DIGOXIN 0.25 MG TAB PO ONE (08:45)
[2020-06-15] MEDS: LIDOCAINE 2% JELLY 30ML TOP SCH (10:05)
[2020-06-15 14:00] VITALS: BP 109/69
--- NOTE | 2020-06-15 14:19 | IPNPDOC ---
Text Note Date of Service The patient was seen on 06/15/20. NOTE SUBJECTIVE: Calm and cooperative. Very poor short term memory . Was confused overnight talking about demons. This am with Tachycardia. EKG showed afib with rvr. OBJECTIVE PHYSICAL EXAMINATION: VITAL SIGNS: Please see below. GENERAL: NAD, comfortable in bed, frail, cachectic. HEENT: PERRLA, EOMI CARDIOVASCULAR: RRR, normal S1, S2, no murmur or rub or gallop RESPIRATORY: Lungs CTAB ABDOMINAL: soft, non tender EXTREMITIES: no deformity, normal ROM SKIN: R ear posterior skin tender to palpation, no obvious rash noted. Scarring noted on R upper chest, extending up skin overlying R SCM anterior and post. NEUROLOGICAL: agitated, confused PSYCHOLOGICAL: calm, cooperative LABORATORY DATA, IMAGING STUDIES, MICROBIOLOGY: Please see below. DVT prophylaxis ordered?: autumn Dumont. ASSESSMENT AND PLAN: Acute encephalopathy on the back ground of Dementia: Improving but still not back to baseline. Amitriptyline effects can take upto 2 to 3 weeks to wear off. Will have to reassess after several weeks if her mental status goes back to baseline. I feel she probably has age related dementia for which she was compensating but after the shingles she really decompensated. It remains to be seen if she ever goes back to baseline or not. Severe cognitive impairment at present: Not cleared for DC from PT/INSULATION PROFESSIONAL. Requires 24x7 care. Will likely require placement vs 24 x 7 care. Seroquel to 25 mg PO PRN QHS. QTC wnl Post Herpetic Neuralgia: shingles 2 mo ago. Affecting R ear, neck, upper chest. Avoid TCAs, Gabapentin as seems to be worsening her probabble underlying dementia. Topical therapy with lidocaine gel 2%. Afib with RVR : eliquis 2.5 mg BID, metoprolol 25 mg PO q12h. will start on digoxin. Chronic systolic CHF with EF of 20 to 25 % : euvolemic. at present. UTI Ruled out: reviewed urine culture from ED, e coli [id number] CFUs. DC ceftriaxone. No WBC. No fever. DISPOSITION: home with 24 x 7 care. VS,Fishbone, I+O VS, Fishbone, I+O Vital Signs Date Time Temp Pulse Resp B/P (MAP) Pulse Ox O2 Delivery O2 Flow Rate FiO2 06/15/20 10:04 94 06/15/20 08:31 119/75 06/15/20 06:00 97.9 16 96 Room Air I&O- Last 24 Hours up to 6 AM 06/15/20 05:59 Intake Total 470 ml Output Total 200 ml Balance 270 ml LUZMARIA GARCIA MD Jun 15, 2020 14:19
[2020-06-15] MEDS: ACETAMINOPHEN TAB 650MG DOSE (2X325MG) PO PRN (16:08)
[2020-06-15 22:00] VITALS: BP 107/67
[2020-06-16] MEDS ORDERED: LIDOCAINE 2% JELLY 5ML TUBE TOP SCH (01:42)
[2020-06-16] MEDS: LIDOCAINE 2% JELLY 5ML TUBE TOP SCH ×3 (02:04→20:42)
[2020-06-16 06:00] VITALS: BP 110/57
[2020-06-16] MEDS: APIXABAN 2.5 MG TAB (ELIQUIS) PO SCH ×2 (08:12→20:42)
[2020-06-16] MEDS: METOPROLOL TART 12.5 MG PER 1/2 TAB PO SCH ×2 (08:12→20:42)
[2020-06-16] MEDS: DIGOXIN 0.125 MG TAB PO SCH (08:12)
--- NOTE | 2020-06-16 10:18 | IPNPDOC ---
Text Note Date of Service The patient was seen on 06/16/20. NOTE SUBJECTIVE: Calm and cooperative this am. Appears well oriented this am. Spoke with son Ed yesterday. He is trying to see if she could go stay with one of his cousins for some time after discharge from hospital. Pulse controlled today. patient does not offer any complaints. OBJECTIVE PHYSICAL EXAMINATION: VITAL SIGNS: Please see below. GENERAL: NAD, comfortable in bed, frail, cachectic. HEENT: PERRLA, EOMI CARDIOVASCULAR: RRR, normal S1, S2, no murmur or rub or gallop RESPIRATORY: Lungs CTAB ABDOMINAL: soft, non tender EXTREMITIES: no deformity, normal ROM SKIN:Scarring noted on R upper chest, extending up skin overlying R SCM anterior and post. NEUROLOGICAL: agitated, confused PSYCHOLOGICAL: calm, cooperative, alert and oriented. LABORATORY DATA, IMAGING STUDIES, MICROBIOLOGY: Please see below. DVT prophylaxis ordered?: autumn Dumont. ASSESSMENT AND PLAN: 80 year old female with PMH of paroxysmal Afib, Systolic CHF with EF of 20% to 25%, shingles 2 months ago with post herpetic neuralgia was brought to the ED as she was found wandering in the streets, confused with some abrasions on her face and arms unable to remember her home address or find her home. She was admitted for AMS. Acute encephalopathy on the back ground of Dementia: Improving but still not ba ck to baseline. Amitriptyline effects can take upto 2 to 3 weeks to wear off. Will have to reassess after several weeks if her mental status goes back to baseline. I feel she probably has age related dementia for which she was compensating but after the shingles she really decompensated. It remains to be seen if she ever goes back to baseline or not. Severe cognitive impairment at present: Not cleared for DC from PT/INSTRUCTOR WATCH ASSEMBLY. Requires 24x7 care. Seroquel to 25 mg PO PRN QHS. QTC wnl Post Herpetic Neuralgia: shingles 2 mo ago. Affecting R ear, neck, upper chest. Avoid TCAs, Gabapentin as seems to be worsening her probabble underlying dementia. Topical therapy with lidocaine gel 2%. Afib with RVR : Now resolved , rate controlled , will check EKG today. continue eliquis 2.5 mg BID, metoprolol BID, dose reduced to 12.5 and started on digoxin. Chronic systolic CHF with EF of 20 to 25 % : euvolemic. at present. UTI Ruled out: reviewed urine culture from ED, e coli [id number] CFUs. DC ceftriaxone. No WBC. No fever. DISPOSITION: home with 24 x 7 care. VS,Fishbone, I+O VS, Fishbone, I+O Vital Signs Date Time Temp Pulse Resp B/P (MAP) Pulse Ox O2 Delivery O2 Flow Rate FiO2 06/16/20 08:12 80 112/68 06/16/20 06:00 98.6 18 92 Room Air I&O- Last 24 Hours up to 6 AM 06/16/20 06:00 Intake Total 570 ml Output Total 550 ml Balance 20 ml LUZMARIA GARCIA MD Jun 16, 2020 09:00
[2020-06-16 15:23] LABS: BASO # 0.1 10^3/uL (0.0-0.2); BASO % 1.4 % (0.0-1.0); EOS # 0.1 10^3/uL (0.0-0.5); EOS % 2.8 % (0.0-3.0); HEMATOCRIT 36.4 % (36.0-47.0); HEMOGLOBIN 11.6 g/dl (12.0-15.5); MEAN CORPUSCULAR HEMOGLOBIN 32.4 pg (27.0-33.0); MEAN CORPUSCULAR HGB CONC 31.9 g/dl (32.0-36.5); MEAN CORPUSCULAR VOLUME 101.7 fl (80.0-96.0); MONO # 0.5 10^3/uL (0.0-0.8); MONO % 9.8 % (0.0-5.0); NEUTROPHILS # 3.3 10^3/uL (1.5-8.5); NEUTROPHILS % 65.4 % (36.0-66.0); PLATELET COUNT, AUTOMATED 285 10^3/uL (150-450); RED BLOOD COUNT 3.58 10^6/uL (4.00-5.40); WHITE BLOOD COUNT 5.1 10^3/uL (4.0-10.0)
[2020-06-16 15:39] LABS: BLOOD UREA NITROGEN 15 MG/DL (7-18); CALCIUM LEVEL 8.6 MG/DL (8.8-10.2); CARBON DIOXIDE LEVEL 29 MEQ/L (21-32); CHLORIDE LEVEL 108 MEQ/L (98-107); CREATININE FOR GFR 0.88 MG/DL (0.55-1.30); GLOMERULAR FILTRATION RATE > 60.0 (>32); GLUCOSE, FASTING 102 MG/DL (70-100); POTASSIUM SERUM 4.5 MEQ/L (3.5-5.1); SODIUM LEVEL 142 MEQ/L (136-145)
[2020-06-17 06:00] VITALS: BP 118/70
[2020-06-17] MEDS: METOPROLOL TART 12.5 MG PER 1/2 TAB PO SCH ×2 (08:51→20:27)
[2020-06-17] MEDS: DIGOXIN 0.125 MG TAB PO SCH (08:52)
[2020-06-17] MEDS: LIDOCAINE 2% JELLY 5ML TUBE TOP SCH ×2 (08:52→20:28)
[2020-06-17] MEDS: APIXABAN 2.5 MG TAB (ELIQUIS) PO SCH ×2 (08:52→20:27)
[2020-06-17] MEDS: QUEtiapine FUMARATE 25 MG TAB PO PRN (08:58)
[2020-06-17 22:00] VITALS: BP 112/69
[2020-06-18 06:00] VITALS: BP 111/70
[2020-06-18] MEDS: DIGOXIN 0.125 MG TAB PO SCH (08:37)
[2020-06-18] MEDS: APIXABAN 2.5 MG TAB (ELIQUIS) PO SCH ×2 (08:38→21:15)
[2020-06-18] MEDS: METOPROLOL TART 12.5 MG PER 1/2 TAB PO SCH ×2 (08:39→21:14)
[2020-06-18] MEDS: LIDOCAINE 2% JELLY 5ML TUBE TOP SCH ×2 (08:40→21:15)
[2020-06-19 06:00] VITALS: BP 124/69
[2020-06-19 09:43] VITALS: BP 112/69
[2020-06-19] MEDS: METOPROLOL TART 12.5 MG PER 1/2 TAB PO SCH (09:43)
[2020-06-19] MEDS: DIGOXIN 0.125 MG TAB PO SCH (09:44)
[2020-06-19] MEDS: APIXABAN 2.5 MG TAB (ELIQUIS) PO SCH (09:44)
[2020-06-19] MEDS: LIDOCAINE 2% JELLY 5ML TUBE TOP SCH (09:46)
[2020-06-19] MEDS ORDERED: METO50TA7 PO (10:48)
--- NOTE | 2020-06-19 15:48 | DS.PDOC ---
Discharge Summary General Date of Admission Jun 13, 2020 at 13:03 Date of Discharge 06/19/20 Discharge Summary PROCEDURES PERFORMED DURING STAY: [None]. DISCHARGE DIAGNOSES: Acute encephalopathy due to medications Underlying Cognitive impairment/ Dementia Systolic CHF with EF of 20% to 25% Post herpetic neuralgia Paroxysmal Afib with RVR COMPLICATIONS/CHIEF COMPLAINT: AMS. HOSPITAL COURSE: 80 year old female with PMH of paroxysmal Afib, Systolic CHF with EF of 20% to 25%, shingles 2 months ago with post herpetic neuralgia was brought to the ED as she was found wandering in the streets, confused with some abrasions on her face and arms unable to remember her home address or find her home. She was admitted for AMS. Acute encephalopathy on the back ground of Dementia: Improving but still not back to baseline. Amitriptyline effects can take upto 2 to 3 weeks to wear off. Will have to reassess after several weeks if her mental status goes back to baseline. I feel she probably has age related dementia for which she was compensating but after the shingles she really decompensated. It remains to be seen if she ever goes back to baseline or not. Severe cognitive impairment at present: Seroquel to 25 mg PO PRN QHS given in hospital. Post Herpetic Neuralgia: shingles 2 mo ago. Affecting R ear, neck, upper chest. Avoid TCAs, Gabapentin as seems to be worsening her probable underlying dementia. Afib with RVR : Now resolved , rate controlled , will check EKG today. continue eliquis 2.5 mg BID, metoprolol BID dose reduced as bp was low normal. Chronic systolic CHF with EF of 20 to 25 % : euvolemic. at present. UTI Ruled out: reviewed urine culture from ED, e coli [id number] CFUs. No WBC. No fever. DISCHARGE MEDICATIONS: Please see below. ALLERGIES: Please see below. PHYSICAL EXAMINATION ON DISCHARGE: VITAL SIGNS: Please see below. GENERAL: NAD, comfortable in bed, frail, cachectic. HEENT: PERRLA, EOMI CARDIOVASCULAR: RRR, normal S1, S2, no murmur or rub or gallop RESPIRATORY: Lungs CTAB ABDOMINAL: soft, non tender EXTREMITIES: no deformity, normal ROM SKIN:Scarring noted on R upper chest, extending up skin overlying R SCM anterior and post. NEUROLOGICAL: agitated, confused PSYCHOLOGICAL: calm, cooperative, alert and oriented. LABORATORY DATA: Please see below. ACTIVITY: [As tolerated]. DIET: As tolerated DISPOSITION: Home, Self-Care. DISCHARGE INSTRUCTIONS: Follow up with PMD Continue with 24 x 7 care DISCHARGE CONDITION: [Stable]. TIME SPENT ON DISCHARGE: 35 minutes. Vital Signs/I&Os Vital Signs Date Time Temp Pulse Resp B/P (MAP) Pulse Ox O2 Delivery O2 Flow Rate FiO2 06/19/20 09:44 92 06/19/20 09:43 112/69 06/19/20 06:00 97.5 18 96 Room Air I&O- Last 24 Hours up to 6 AM 06/19/20 06:00 Intake Total 570 ml Output Total 150 ml Balance 420 ml Discharge Medications Scheduled Apixaban (Eliquis) 2.5 Mg Tablet, 2.5 MG PO BID, (Reported) Furosemide (Furosemide) 20 Mg Tablet, 20 MG PO DAILY, (Reported) Metoprolol Tartrate (Metoprolol Tartrate) 50 Mg Tablet, 25 MG PO BID Allergies Coded Allergies: Penicillins (Verified Allergy, Intermediate, 04/04/20) gabapentin (Verified Adverse Reaction, Intermediate, HALLUCINATIONS, 06/07/20) LUZMARIA GARCIA MD Jun 19, 2020 15:47
--- NOTE | 2020-06-30 09:26 | ECGEPIP ---
[facility] - ED Test Date: 2020-06-07 Pat Name: VLADISLAV ROGER Department: Room: [place] [address] Gender: Female Group Product Manager: POLY : 1940 Requested By: Cj Boland Order Number: [id number] Reading MD: Brooke Dominguez Measurements Intervals [place] Rate: 99 P: SD: 0 QRS: -19 QRSD: 87 T: 44 QT: 349 QTc: 448 Interpretive Statements ATRIAL FIBRILLATION MINIMAL ST DEPRESSION ABNORMAL RHYTHM ECG SEE SCANNED DOWNTIME REPORT
--- NOTE | 2020-07-12 15:21 | ECGEPIP ---
[facility] Test Date: 2020-06-15 Pat Name: VLADISLAV ROGER Department: Room: [place] [address] Gender: Female Health Education Coordinator: ANI : 1940 Requested By: LUZMARIA GARCIA Order Number: [id number] Reading MD: Cindy Goddard Measurements Intervals [place] Rate: 119 P: CT: 0 QRS: -30 QRSD: 85 T: 79 QT: 297 QTc: 419 Interpretive Statements ATRIAL FIBRILLATION WITH RAPID VENTRICULAR RESPONSE LEFT AXIS DEVIATION ST & T-WAVE ABNORMALITY, MILD ST DEPRESSION ABNORMAL RHYTHM ECG SEE SCANNED DOWNTIME REPORT
--- NOTE | 2020-07-14 11:32 | ECGEPIP ---
[facility] Test Date: 2020-06-16 Pat Name: VLADISLAV ROGER Department: Room: 4221 Gender: Female Straightedge Worker: ANI : 1940 Requested By: RAY Order Number: [id number] Reading MD: Cindy Goddard Measurements Intervals [place] Rate: 76 P: [place]: 0 QRS: -18 QRSD: 90 T: 45 QT: 373 QTc: 421 Interpretive Statements ATRIAL FIBRILLATION ST & T-WAVE ABNORMALITY ABNORMAL RHYTHM ECG LAD COPD PATTERN SEE SCANNED DOWNTIME REPORT
--- NOTE | 2020-07-14 14:54 | ECGEPIP ---
[facility] Test Date: 2020-06-11 Pat Name: VLADISLAV ROGER Department: Room: [place] [address] Gender: Female Nurse'S Assistant: ANI : 1940 Requested By: EUSEBIA DOBBINS Order Number: [id number] Reading MD: Carlton Stoo Measurements Intervals [place] Rate: 112 P: [place]: 0 QRS: -11 QRSD: 88 T: 78 QT: 320 QTc: 438 Interpretive Statements ATRIAL FIBRILLATION WITH RAPID VENTRICULAR RESPONSE-LEFT AXIS DEVIATION LOW VOLTAGE AND SLOW PROBABLE R PROGRESSION; BODY HABITS VS COPD NONSPECIFIC ST/T ABN'S SEE SCANNED DOWNTIME REPORT.
[2020-07-18 20:27] LABS: BASO % 0.4 % (0.0-1.0); EOS # 0.1 10^3/uL (0.0-0.5); EOS % 0.6 % (0.0-3.0); HEMATOCRIT 40.4 % (36.0-47.0); LYMPH # 0.6 10^3/uL (1.5-5.0); LYMPH % 7.6 % (24.0-44.0); MEAN CORPUSCULAR HEMOGLOBIN 32.8 pg (27.0-33.0); MEAN CORPUSCULAR HGB CONC 32.2 g/dl (32.0-36.5); MONO # 0.4 10^3/uL (0.0-0.8); MONO % 4.9 % (0.0-5.0); NEUTROPHILS # 6.9 10^3/uL (1.5-8.5); NEUTROPHILS % 84.3 % (36.0-66.0); PLATELET COUNT, AUTOMATED 202 10^3/uL (150-450); RED BLOOD COUNT 3.96 10^6/uL (4.00-5.40); WHITE BLOOD COUNT 8.2 10^3/uL (4.0-10.0)
[2020-07-18 20:28] LABS: INR 1.03; PARTIAL THROMBOPLASTIN TIME 29.8 SECONDS (24.2-38.5); PROTHROMBIN TIME 13.7 SECONDS (12.5-14.3)
[2020-07-18 20:58] LABS: APPEARANCE, URINE CLEAR (CLEAR); BACTERIA, URINE AUTO 1+ (NEGATIVE); BILIRUBIN, URINE AUTO NEGATIVE (NEGATIVE); BLOOD, URINE BLOOD NEGATIVE (NEGATIVE); COLOR, URINE YELLOW (YELLOW); GLUCOSE, URINE (UA) AUTO NEGATIVE (NEGATIVE); GRANULAR CAST, URINE AUTO 1 /LPF; KETONE, URINE AUTO NEGATIVE (NEGATIVE); LEUKOCYTE ESTERASE, URINE AUTO NEGATIVE (NEGATIVE); MUCUS, URINE SMALL (NEGATIVE); NITRITE, URINE AUTO NEGATIVE (NEGATIVE); PROTEIN, URINE AUTO NEGATIVE (NEGATIVE); RBC, URINE AUTO 1 /HPF (0-3); SPECIFIC GRAVITY URINE AUTO 1.017 (1.002-1.035); SQUAMOUS EPITHELIAL CELL UR AU 0 /HPF (0-6); UROBILINOGEN, URINE AUTO 0.2 mg/dL (0.0-2.0); WBC, URINE AUTO 1 /HPF (0-3)
== END 2020-06-19 12:02 | disposition home or self-care (01) | DRG 92 ==
LOC: M ED 07:30 → UNDOADMOB 14:20 → M MSPAV 14:20 → INTOOBSV 06-13 13:03 → OBSVTOIN 06-13 13:03 → UNDODISIN 06-19 12:02 → EDSTATUS 07-20 12:22
PROVIDERS: ADMIT Family Medicine; ATTEND Internal Medicine Nephrology
DX: G92 Toxic encephalopathy (principal); B02.22 Postherpetic trigeminal neuralgia; I50.22 Chronic systolic (congestive) heart failure; I48.0 Paroxysmal atrial fibrillation; Z79.01 Long term (current) use of anticoagulants; Z79.899 Other long term (current) drug therapy; F03.90 Unspecified dementia, unspecified severity, without behavioral disturbance, psychotic disturbance, mood disturbance, and anxiety; T43.015A Adverse effect of tricyclic antidepressants, initial encounter

== ENCOUNTER → 2020-07-20 | Outpatient (RCR) | payer MEDICARE, OTHER ==
[~2020-07-20] MED LIST changes: +AMIT25TA PO; +METO50TA7 PO
== END | disposition home or self-care (01) ==
LOC: M PT 07-06 09:03
PROVIDERS: ATTEND Family Medicine
DX: R26.81 Unsteadiness on feet (principal)

== ENCOUNTER → 2020-07-25 | Outpatient (REF) | payer MEDICARE, OTHER | LOC: M SFHCPLAZ 10:58 | PROVIDERS: ATTEND Internal Medicine | DX: H92.01 Otalgia, right ear (principal); R51.9 Headache, unspecified; Z23 Encounter for immunization | CPT/HCPCS: 36415; 85652; 86140; 90682; G0008; G0463 ==

== ENCOUNTER 2020-08-03 09:15 | Outpatient (RCR) | payer MEDICARE, OTHER | END 2020-08-20 | LOC: M PT 09:15 | PROVIDERS: ATTEND Family Medicine | DX: R26.81 Unsteadiness on feet (principal) ==

== ENCOUNTER 2021-11-17 18:39 | Inpatient (IN) | payer MEDICARE, OTHER ==
[~2021-11-17 18:39] MED LIST changes: -AMIT25TA PO; +AMIT25TA17 PO; +DOXY-443 PO; -DOXY100C37 PO
[2021-11-17] MEDS ORDERED: LORazepam 2 MG/ML VIAL IV STA (18:56)
[2021-11-17 19:34] LABS: BASO # 0.1 10^3/uL (0.0-0.2); BASO % 0.7 % (0.0-1.0); HEMATOCRIT 35.4 % (36.0-47.0); HEMOGLOBIN 11.6 g/dl (12.0-15.5); LYMPH # 0.5 10^3/uL (1.5-5.0); LYMPH % 5.3 % (24.0-44.0); MEAN CORPUSCULAR HEMOGLOBIN 31.6 pg (27.0-33.0); MEAN CORPUSCULAR HGB CONC 32.8 g/dl (32.0-36.5); MEAN CORPUSCULAR VOLUME 96.5 fl (80.0-96.0); MONO # 0.6 10^3/uL (0.0-0.8); MONO % 6.6 % (2.0-8.0); NEUTROPHILS # 7.5 10^3/uL (1.5-8.5); NEUTROPHILS % 87.1 % (36.0-66.0); PLATELET COUNT, AUTOMATED 194 10^3/uL (150-450); RED BLOOD COUNT 3.67 10^6/uL (4.00-5.40); WHITE BLOOD COUNT 8.6 10^3/uL (4.0-10.0)
[2021-11-17 19:56] LABS: CALCIUM LEVEL 9.2 MG/DL (8.8-10.2); CREATININE FOR GFR 1.03 MG/DL (0.55-1.30); GLOMERULAR FILTRATION RATE 54.5 (>32)
[2021-11-17] MEDS ORDERED: APIXABAN 2.5 MG TAB (ELIQUIS) PO ONE (20:35)
[2021-11-17] MEDS ORDERED: METOPROLOL TART 25 MG TABLET PO ONE (20:35)
[2021-11-17] MEDS ORDERED: NS 500 ML IV ONE (20:35)
[2021-11-17] MEDS ORDERED: HOME MED LIST COMPLETE! XX SCH (21:10)
[2021-11-17] MEDS ORDERED: ISOVUE-370 76% 100ML VIAL As Ordered ONE (22:40)
[2021-11-18 05:18] VITALS: BP 106/64
== END 2021-11-18 06:18 | DRG 65 ==
LOC: M ED 18:39 → UNDOADMIN 22:09 → M ED INP 22:09 → ENRESERV 22:45
PROVIDERS: ADMIT Internal Medicine; ATTEND Internal Medicine
DX: I63.9 Cerebral infarction, unspecified (principal); M62.82 Rhabdomyolysis; I48.91 Unspecified atrial fibrillation; R29.6 Repeated falls; Z79.01 Long term (current) use of anticoagulants; Z79.899 Other long term (current) drug therapy; Z88.0 Allergy status to penicillin; Z88.8 Allergy status to other drugs, medicaments and biological substances; Z20.822 Contact with and (suspected) exposure to COVID-19

== ENCOUNTER 2021-12-17 21:10 | Emergency (ER) | payer MEDICARE, OTHER | END 2021-12-17 22:01 | disposition home or self-care (01) | LOC: M ED 21:10 | DX: K94.29 Other complications of gastrostomy (principal); I10 Essential (primary) hypertension; F03.90 Unspecified dementia, unspecified severity, without behavioral disturbance, psychotic disturbance, mood disturbance, and anxiety; I48.91 Unspecified atrial fibrillation; Z88.0 Allergy status to penicillin; Z88.8 Allergy status to other drugs, medicaments and biological substances; Z79.899 Other long term (current) drug therapy; Z79.01 Long term (current) use of anticoagulants ==

== ENCOUNTER 2021-12-18 20:15 | Emergency (ER) | payer MEDICARE, OTHER ==
[~2021-12-18] VITALS: Ht 167.6 cm; Wt 59.0 kg
[2021-12-18 23:40] VITALS: BP 110/56
== END 2021-12-18 23:43 | disposition home or self-care (01) ==
LOC: M ED 20:15
DX: K94.29 Other complications of gastrostomy (principal); I10 Essential (primary) hypertension; I48.91 Unspecified atrial fibrillation; F03.90 Unspecified dementia, unspecified severity, without behavioral disturbance, psychotic disturbance, mood disturbance, and anxiety; Z88.0 Allergy status to penicillin; Z88.8 Allergy status to other drugs, medicaments and biological substances; Z79.899 Other long term (current) drug therapy; Z79.01 Long term (current) use of anticoagulants